=== PATIENT | male | born 1940 | race Caucasian/White ===

== ENCOUNTER 2021-12-30 14:10 | Outpatient (CLI) | payer MEDICARE, SELFPAY ==
--- NOTE | ~2021-12-30 | XR_ITS ---
EXAM: XR ankle RT min 3V, XR foot RT 2V DATE: 12/30/2021 14:36 (accession [id number]), 12/30/2021 14:37 (accession [id number]) HISTORY: M79.671 - SWELLING. NKI . COMPARISON: None available. FINDINGS: Normal mineralization. No fracture or dislocation. No lytic or blastic lesion. Mild tibiot alar osteophytosis. Severe narrowing, sclerosis, and osteophytosis at the first MTP joint. Moderate A chilles and mild plantar enthesopathy. Large os navicularis. No erosion or periosteal change. Soft ti ssue swelling about the ankle and forefoot. IMPRESSION: No acute osseous finding in the right ankle or foot. Degenerative changes, described abov e. Prominent os navicularis which can be a source of chronic medial pain in some patients. Reviewed, dictated and finalized at location K. IMPRESSION: No acute osseous finding in the right ankle or foot. Degenerative c hanges, described above. Prominent os navicularis which can be a source of serologist tod medial pain in some patients.
== END 2021-12-30 14:11 | disposition home or self-care (01) ==
LOC: ANHIMG 14:16
PROVIDERS: PCP Internal Medicine; Visit Provider Internal Medicine
DX: M25.571 Pain in right ankle and joints of right foot (principal); M79.671 Pain in right foot
CPT/HCPCS: 73610; 73620

== ENCOUNTER 2022-03-02 09:12 | Outpatient (CLI) | payer MEDICARE, SELFPAY ==
[2022-03-02 09:30] LABS: Basophils Absolute Auto 0.1 K/mm3 (0.0-0.1); Eosinophils Absolute Auto 0.3 K/mm3 (0-0.3); Eosinophils Percent Auto 3.9 % (0-4.4); Hematocrit 41.8 % (42.0-52.0); Hemoglobin 13.3 g/dL (14.0-18.0); Immature Granulocyte Absolute 0.02 K/mm3 (0.00-0.031); Immature Granulocyte Percent A 0.3 % (0-0.5); Lymphocytes Absolute Auto 2.57 K/mm3 (0.9-3.2); Lymphocytes Percent Auto 32.6 % (18.3-44.2); Mean Corpuscular HGB Conc 31.8 g/dl (32-36); Mean Corpuscular Hemoglobin 30.6 pg (26-34); Mean Corpuscular Volume 96.1 fl (80-100); Mean Platelet Volume 10.1 fl (7.4-10.4); Monocytes Absolute Auto 0.5 K/mm3 (0.1-0.6); Monocytes Percent Auto 6.2 % (2.6-8.5); Neutrophils Absolute Auto 4.4 K/mm3 (1.3-6.7); Platelet Count Result 229 k/mm3 (150-375); Red Blood Count 4.35 M/mm3 (4.6-6.20); Red Cell Distribution Width 13.2 % (11.5-14.5); White Blood Count 7.9 K/mm3 (4.5-10.0)
[2022-03-02 09:48] LABS: Alanine Aminotransferase 18 U/L (6-50); Albumin Level 4.1 g/dL (3.5-5.1); Alkaline Phosphatase 141 U/L (38-126); Anion Gap 8 mmol/L (8-16); Aspartate Amino Transferase 23 U/L (17-59); Bilirubin,Total 0.6 mg/dL (0.2-1.3); Blood Urea Nitrogen 16 mg/dL (9-20); Calcium 8.7 mg/dL (8.4-10.2); Carbon Dioxide 29 mmol/L (22-30); Chloride 102 mmol/L (98-107); Cholesterol 145 mg/dL (0-200); Estimated Glomerular Filt Rate 53; Glucose 101 mg/dL (65-110); HDL Direct 34 mg/dL; Potassium 4.3 mmol/L (3.4-5.0); Sodium 139 mmol/L (137-145); Triglycerides 189 mg/dL (<150)
[2022-03-02 09:59] LABS: LDL Cholesterol Direct 70 mg/dL
[2022-03-02 10:19] LABS: Prostate Specific Antigen 0.4 ng/mL (< OR = 4.0)
[2022-03-02 10:55] LABS: Folic Acid 7.6 ng/mL (2.76->20)
== END 2022-03-02 09:13 | disposition home or self-care (01) ==
PROVIDERS: PCP Internal Medicine; Visit Provider Internal Medicine
DX: R53.83 Other fatigue (principal); I25.10 Atherosclerotic heart disease of native coronary artery without angina pectoris; Z12.5 Encounter for screening for malignant neoplasm of prostate
CPT/HCPCS: 36415; 80053; 80061; 82607; 82746; 84153; 84443; 85025; G0103

== ENCOUNTER 2022-07-14 14:06 | Emergency (ER) | payer MEDICARE, SELFPAY ==
[2022-07-14] VITALS (10 sets, daily range): BP systolic 142–155; BP diastolic 74–84; PULSE 57–65; RESP 14–21; TEMP 36.5–37.1; O2SAT 99–100
--- NOTE | ~2022-07-14 | CT_ITS ---
EXAMINATION: CT brain wo con DATE: 07/14/2022 16:05 INDICATION: seizure . TECHNIQUE: Computed tomography (CT) of the head was performed without intravenous contrast. The mA wa s adjusted according to patient size. Iterative reconstruction technique was employed. The dose-lengt h product was 605.33 mGy-cm. COMPARISON: None. FINDINGS: No acute intracranial hemorrhage or extra-axial fluid collection. No hydrocephalus, mass, or herniation. No acute ischemic infarct. Unremarkable dural venous sinus attenuation. No acute osseous abnormality. The aerated spaces are clear. Moderate atrophy and chronic white matter change. Atherosclerotic intracranial calcification. IMPRESSION: No acute intracranial process. Reviewed, dictated and finalized at location K. PUMPER
--- NOTE | ~2022-07-14 | XR_ITS ---
XR chest 2V 07/14/2022 14:43 Indication: Chest pain. Procedure: 2 view chest Comparison: No prior studies for comparison. Findings: Status post median sternotomy for CABG. There is scalloping of the left diaphragm. No focal air space disease, pulmonary edema, pleural effusion or suspected pneumothorax. 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 Impression: 1: No acute cardiopulmonary disease. Reviewed, dictated and finalized at location B. FORMING SUPERVISOR Impression: 1: No acute cardiopulmonary disease.
--- NOTE | 2022-07-14 14:16 | ECG_ITS ---
Measurements Intervals [place] Rate: 56 P: 26 IL: 196 QRS: -41 QRSD: 126 T: 47 QT: 446 QTc: 431 Interpretive Statements SINUS BRADYCARDIA MARKED LEFT AXIS DEVIATION [QRS AXIS < -30] MODERATE INTRAVENTRICULAR CONDUCTION DELAY [105+ ms QRS DURATION, 80+ ms Q/S IN V1/V2, NO Q AND 60+ ms R IN I/aVL/V5/V6] NO PREVIOUS ECG AVAILABLE FOR COMPARISON Electronically Signed On 07-14-2022 15:07:50 OIL WELL SERVICES SUPERVISOR by Massiel Collazo M.D.
[2022-07-14 14:39] LABS: Basophils Absolute Auto 0.1 K/mm3 (0.0-0.1); Basophils Percent Auto 1.1 % (0.2-1.2); Eosinophils Absolute Auto 0.3 K/mm3 (0-0.3); Eosinophils Percent Auto 3.7 % (0-4.4); Hematocrit 42.3 % (42.0-52.0); Hemoglobin 13.6 g/dL (14.0-18.0); Immature Granulocyte Absolute 0.03 K/mm3 (0.00-0.031); Immature Granulocyte Percent A 0.4 % (0-0.5); Lymphocytes Absolute Auto 2.43 K/mm3 (0.9-3.2); Lymphocytes Percent Auto 29.3 % (18.3-44.2); Mean Corpuscular HGB Conc 32.2 g/dl (32-36); Mean Corpuscular Hemoglobin 30.5 pg (26-34); Mean Corpuscular Volume 94.8 fl (80-100); Mean Platelet Volume 10.2 fl (7.4-10.4); Monocytes Absolute Auto 0.6 K/mm3 (0.1-0.6); Neutrophils Absolute Auto 4.9 K/mm3 (1.3-6.7); Neutrophils Percent Auto 58.5 % (45.5-73.1); Platelet Count Result 248 k/mm3 (150-375); Red Blood Count 4.46 M/mm3 (4.6-6.20); Red Cell Distribution Width 14.2 % (11.5-14.5); White Blood Count 8.3 K/mm3 (4.5-10.0)
[2022-07-14 14:49] LABS: Alanine Aminotransferase 23 U/L (6-50); Albumin Level 4.4 g/dL (3.5-5.1); Alkaline Phosphatase 137 U/L (38-126); Anion Gap 7 mmol/L (8-16); Aspartate Amino Transferase 28 U/L (17-59); Bilirubin,Total 0.6 mg/dL (0.2-1.3); Blood Urea Nitrogen 17 mg/dL (9-20); Calcium 8.5 mg/dL (8.4-10.2); Carbon Dioxide 26 mmol/L (22-30); Chloride 107 mmol/L (98-107); Estimated CRCL calculation 41 ml/min; Estimated Glomerular Filt Rate 58; Glucose 140 mg/dL (65-110); INR 1.1; Lipase 511 U/L (23-300); Potassium 3.9 mmol/L (3.4-5.0); Prothrombin Time 13.7 Seconds (11.1-14.7); Sodium 140 mmol/L (137-145)
[2022-07-14 14:50] LABS: Partial Thromboplastin Time 29.3 SECONDS (22.3-36.8)
[2022-07-14 15:01] LABS: Troponin I < 0.012 ng/mL (0.000-0.034)
--- NOTE | 2022-07-14 16:10 | PC.NURSE ---
Patient off unit to CT.
--- NOTE | 2022-07-14 16:52 | ED.GENADULT ---
HPI - General Adult General Chief complaint: Unspecified Stated complaint: tremors Time Seen by Provider: 07/14/22 15:54 Source: patient and family Mode of arrival: ambulatory Limitations: no limitations History of Present Illness HPI narrative: 81-year-old with a history of CAD s/p CABG, dementia was brought in by his with complaints of right arm pain and shakiness. Patient mentions that they were on their way to from home to their house started to have pain in his right upper extremity and he was violently shaking. He denied any chest pain, shortness of breath. By the time he came to the ER he still has mild pain in his right arm but otherwise no tremor Onset (ago): hour(s) (2) Location: upper extremity (Right upper) Radiation: non-radiation Severity: moderate Quality: aching Pain Consistency: now resolved Relieving factors: none Exacerbating factors: none Associated symptoms: denies other symptoms Related Data Home Medications Medication Instructions Recorded Confirmed atorvastatin 80 mg tablet 80 mg PO DAILY 09/22/21 04/08/22 donepezil 10 mg tablet 10 mg PO QHS 09/22/21 04/08/22 finasteride 5 mg tablet 5 mg PO DAILY 09/22/21 04/08/22 memantine 10 mg tablet 10 mg PO BID 09/22/21 04/08/22 metoprolol tartrate 25 mg tablet 12.5 mg PO BID 09/22/21 04/08/22 mirtazapine 15 mg tablet 15 mg PO DAILY 09/22/21 04/08/22 montelukast 10 mg tablet 10 mg PO DAILY 09/22/21 04/08/22 omeprazole 20 mg tablet,delayed 20 mg PO BID 09/22/21 04/08/22 release Allergies Allergy/AdvReac Type Severity Reaction Status Date / Time codeine Allergy Unknown unkown Verified 07/14/22 15:56 gemfibrozil Allergy Unknown unkown Verified 07/14/22 15:56 niacin Allergy Unknown unkown Verified 07/14/22 15:56 terazosin Allergy Unknown unkown Verified 07/14/22 15:56 Review of Systems Review of Systems: All systems reviewed & are unremarkable except as noted in HPI and below Constitutional: Constitutional: Reports no additional constitutional complaints Eyes: Eyes: Reports no additional eye complaints ENT: Reports system reviewed and no additional complaints, except as documented Cardiovascular: Cardiovascular: Reports no additional cardiovascular complaints Respiratory: Respiratory: Reports no additional respiratory complaints Gastrointestinal: Gastrointestinal: Reports no additional gastrointestinal complaints Musculoskeletal: Musculoskeletal: Reports as per HPI Neurologic: Reports system reviewed and no additional complaints, except as documented PMFSH Past Medical History Medical History Allergies Heart disease Hypertension Family History Family History Father Alzheimer's dementia Mother Asthma Diabetes mellitus Hypertension Heart disease Social History Social History Smoking status: Former smoker Second hand tobacco smoke exposure: No Alcohol intake: never Substance use: unknown Lack of Transportation: No Lack of Food: Never True Current Housing: I Have Housing Concerned About Future Housing: No Difficulty Paying Gas/Electric Bills: No Difficulty Paying for Meds: No Currently Unemployed: No Education: High School Diploma/GED Exam Narrative: GENERAL: Well-appearing, well-nourished, and in no acute distress. HEAD: Normocephalic, atraumatic. EYES: PERRLA and EOMI. NECK: Supple. CHEST: Clear to auscultation. No respiratory distress. HEART: Regular rate and rhythm. No murmur heard. Normal peripheral pulses. ABDOMEN: Soft, nontender, nondistended, normal active bowel sounds. EXTREMITIES: Normal range of motion. No edema. SKIN: Warm, dry, no rash. NEURO: No focal deficits. Alert and oriented x3. No weakness PSYCH: Normal mood and affect. Course Course Emergency Course: Patient remained asymptomatic here in the ER
== END 2022-07-14 17:26 | disposition home or self-care (01) ==
LOC: ANHED 16:55
PROVIDERS: Emergency Medicine; Emergency Provider Family Medicine; PCP Internal Medicine
DX: M79.601 Pain in right arm (principal); R00.1 Bradycardia, unspecified; I10 Essential (primary) hypertension
CPT/HCPCS: 36415; 70450; 71046; 80053; 83690; 84484; 85025; 85610; 85730; 93005; 99284

== ENCOUNTER 2022-07-28 12:01 | Outpatient (CLI) | payer MEDICARE, SELFPAY ==
[2022-07-28 13:12] LABS: Influenza A QL RT-PCR Negative (Negative); Influenza B QL RT-PCR Negative (Negative); RSV RNA, RT-PCR Negative (Negative); SARS-CoV-2 RNA PCR Negative
== END 2022-07-28 12:02 | disposition home or self-care (01) ==
LOC: ANHLAB 12:02
PROVIDERS: PCP Internal Medicine; Visit Provider Internal Medicine
DX: R50.9 Fever, unspecified (principal); Z20.822 Contact with and (suspected) exposure to COVID-19
CPT/HCPCS: 87637

== ENCOUNTER 2022-11-02 10:58 | Outpatient (CLI) | payer MEDICARE, SELFPAY ==
[2022-11-02 12:00] LABS: Basophils Absolute Auto 0.1 K/mm3 (0.0-0.1); Eosinophils Absolute Auto 0.3 K/mm3 (0-0.3); Eosinophils Percent Auto 3.5 % (0-4.4); Hematocrit 43.4 % (42.0-52.0); Hemoglobin 13.7 g/dL (14.0-18.0); Immature Granulocyte Absolute 0.02 K/mm3 (0.00-0.031); Immature Granulocyte Percent A 0.3 % (0-0.5); Lymphocytes Absolute Auto 2.58 K/mm3 (0.9-3.2); Lymphocytes Percent Auto 33.3 % (18.3-44.2); Mean Corpuscular HGB Conc 31.6 g/dl (32-36); Mean Corpuscular Hemoglobin 30.1 pg (26-34); Mean Corpuscular Volume 95.4 fl (80-100); Mean Platelet Volume 10.5 fl (7.4-10.4); Monocytes Absolute Auto 0.5 K/mm3 (0.1-0.6); Monocytes Percent Auto 6.3 % (2.6-8.5); Neutrophils Absolute Auto 4.3 K/mm3 (1.3-6.7); Neutrophils Percent Auto 55.6 % (45.5-73.1); Platelet Count Result 244 k/mm3 (150-375); Red Blood Count 4.55 M/mm3 (4.6-6.20); Red Cell Distribution Width 13.8 % (11.5-14.5); White Blood Count 7.8 K/mm3 (4.5-10.0)
[2022-11-02 12:12] LABS: Alanine Aminotransferase 20 U/L (6-50); Albumin Level 4.3 g/dL (3.5-5.1); Alkaline Phosphatase 138 U/L (38-126); Anion Gap 4 mmol/L (8-16); Aspartate Amino Transferase 26 U/L (17-59); Bilirubin,Total 0.6 mg/dL (0.2-1.3); Blood Urea Nitrogen 19 mg/dL (9-20); Calcium 8.7 mg/dL (8.4-10.2); Carbon Dioxide 30 mmol/L (22-30); Chloride 103 mmol/L (98-107); Cholesterol 136 mg/dL (0-200); Estimated Glomerular Filt Rate 53; Glucose 94 mg/dL (65-110); HDL Direct 35 mg/dL; Magnesium 2.1 mg/dL (1.6-2.3); Potassium 4.6 mmol/L (3.4-5.0); Sodium 137 mmol/L (137-145); Triglycerides 172 mg/dL (<150)
[2022-11-02 12:23] LABS: LDL Cholesterol Direct 71 mg/dL
== END 2022-11-02 10:59 | disposition home or self-care (01) ==
PROVIDERS: PCP Internal Medicine; Visit Provider Internal Medicine
DX: R53.83 Other fatigue (principal); E78.5 Hyperlipidemia, unspecified; I10 Essential (primary) hypertension
CPT/HCPCS: 36415; 80053; 80061; 83735; 84443; 85025

== ENCOUNTER 2023-11-04 13:12 | Emergency (ER) | payer MEDICARE, MEDICAID, SELFPAY ==
[2023-11-04 13:13] VITALS: BP 150/63; PULSE 56; RESP 16; TEMP 36.4; O2SAT 99
[2023-11-04 13:25] LABS: Basophils Absolute Auto 0.1 K/mm3 (0.0-0.1); Basophils Percent Auto 0.8 % (0.2-1.2); Eosinophils Absolute Auto 0.3 K/mm3 (0-0.3); Eosinophils Percent Auto 3.5 % (0-4.4); Hematocrit 39.8 % (42.0-52.0); Hemoglobin 13.2 g/dL (14.0-18.0); Immature Granulocyte Absolute 0.03 K/mm3 (0.00-0.031); Immature Granulocyte Percent A 0.3 % (0-0.5); Lymphocytes Absolute Auto 2.58 K/mm3 (0.9-3.2); Lymphocytes Percent Auto 26.6 % (18.3-44.2); Mean Corpuscular HGB Conc 33.2 g/dl (32-36); Mean Corpuscular Hemoglobin 31.8 pg (26-34); Mean Corpuscular Volume 95.9 fl (80-100); Mean Platelet Volume 9.7 fl (7.4-10.4); Monocytes Absolute Auto 0.7 K/mm3 (0.1-0.6); Monocytes Percent Auto 7.3 % (2.6-8.5); Neutrophils Percent Auto 61.5 % (45.5-73.1); Platelet Count Result 265 k/mm3 (150-375); Red Blood Count 4.15 M/mm3 (4.6-6.20); White Blood Count 9.7 K/mm3 (4.5-10.0)
[2023-11-04 13:36] LABS: Alanine Aminotransferase 29 U/L (6-50); Albumin Level 3.9 g/dL (3.5-5.1); Alkaline Phosphatase 110 U/L (38-126); Anion Gap 5 mmol/L (4-12); Aspartate Amino Transferase 31 U/L (17-59); Bilirubin,Total 0.5 mg/dL (0.2-1.3); Blood Urea Nitrogen 18 mg/dL (9-20); Calcium 8.9 mg/dL (8.4-10.2); Carbon Dioxide 26 mmol/L (22-30); Chloride 100 mmol/L (98-107); Estimated CRCL calculation 46 ml/min; Estimated Glomerular Filt Rate > 60; Glucose 115 mg/dL (65-110); Lipase 182 U/L (23-300); Potassium 4.3 mmol/L (3.4-5.0); Sodium 131 mmol/L (137-145)
[2023-11-04 13:40] LABS: Appearance Urine Clear (Clear); Bacteria Urine None Seen /hpf; Bilirubin Urine Negative (Negative); Blood Urine Negative (Negative); Color Urine Yellow (Yellow); Glucose Urine UA Negative (Negative); Ketones Urine Negative (Negative); Leukocyte Esterase Ur 2+ LEU/UL (Negative); Nitrate Urine Negative (Negative); Non Pathogenic Casts 0-2; Protein Urine Negative (Negative); RBC Urine 0-2 /hpf (0-2); Specific Grav Ur 1.016 (1.001-1.035); Squamous Epithelial Cell Urine None Seen /hpf (Few); Urobilinogen Urine 0.2 mg/dL (<2.0)
[2023-11-04 13:41] LABS: Add Urine Microscopic? YES
[2023-11-04 14:45] VITALS: BP 150/70; PULSE 57; RESP 17; O2SAT 97
--- NOTE | 2023-11-04 16:03 | ED.ABDPAIN ---
HPI - Abdominal Pain General Chief Complaint: Abdominal Pain Stated Complaint: abd pain Time Seen by Provider: 11/04/23 13:30 History of Present Illness HPI narrative: Patient is a 82-year-old male who presents the ER with abdominal pain. Reports he is sitting down and had sudden pain that made him in [place]. He has not had it since then. Unable to tell me where it is located in his abdomen. No nausea or vomiting. No diarrhea. Denies fevers or chills or sweats. No urinary frequency urgency. Patient does have dementia. Related Data Home Medications Medication Instructions Recorded Confirmed donepezil 10 mg tablet 10 mg PO QHS 09/22/21 01/19/23 finasteride 5 mg tablet 5 mg PO DAILY 09/22/21 01/19/23 metoprolol tartrate 25 mg tablet 12.5 mg PO BID 09/22/21 01/19/23 mirtazapine 15 mg tablet 15 mg PO DAILY 09/22/21 01/19/23 montelukast 10 mg tablet 10 mg PO DAILY 09/22/21 01/19/23 omeprazole 20 mg tablet,delayed 20 mg PO BID 09/22/21 01/19/23 release Allergies Allergy/AdvReac Type Severity Reaction Status Date / Time codeine Allergy Unknown unkown Verified 02/04/23 10:28 gemfibrozil Allergy Unknown unkown Verified 02/04/23 10:28 niacin Allergy Unknown unkown Verified 02/04/23 10:28 terazosin Allergy Unknown unkown Verified 02/04/23 10:28 Review of Systems Review of Systems: All systems reviewed & are unremarkable except as noted in HPI and below Constitutional: Constitutional: Reports no additional constitutional complaints Cardiovascular: Cardiovascular: Reports no additional cardiovascular complaints Respiratory: Respiratory: Reports no additional respiratory complaints Gastrointestinal: Gastrointestinal: Reports abdominal pain, Denies diarrhea, Denies nausea and Denies vomiting Genitourinary: Genitourinary: Reports no additional male genitourinary complaints [facility] Past Medical History Medical History Allergies Heart disease Hypertension Family History Family History Father Alzheimer's dementia Mother Asthma Diabetes mellitus Hypertension Heart disease Social History Social History Smoking status: Former smoker Second hand tobacco smoke exposure: No Alcohol intake: never Substance use: unknown Lack of Transportation: No Lack of Food: Never True Current Housing: I Have Housing Concerned About Future Housing: No Difficulty Paying Gas/Electric Bills: No Difficulty Paying for Meds: No Currently Unemployed: No Education: High School Diploma/GED Difficulty w/ Childcare or Family Care: No Living arrangements: with family Occupation/Education: retired Gender identity (if verbalized by the patient): Male Exam Narrative: GENERAL: Well-appearing, well-nourished, and in no acute distress. HEAD: Normocephalic, atraumatic. ENT: Mucous membranes moist. CHEST: Clear to auscultation. No respiratory distress. HEART: Regular rate and rhythm. Normal peripheral pulses. ABDOMEN: Soft, nontender, nondistended. EXTREMITIES: Normal range of motion. No edema. SKIN: Warm, dry, no rash. NEURO: Alert and oriented x2. PSYCH: Normal mood and affect. Course Course Emergency Course: Unremarkable exam here. Labs with 2+ leukocyte esterase and 6-10 white blood cells. No red blood cells. No leukocytosis. Normal renal function and electrolytes with exception of slight hypernatremia. Appropriate for discharge, I do not think this is UTI. JUNIOR SALES REPRESENTATIVE/PA Physician Supervision On room Vital Signs Vital signs: Vital Signs Temperature 97.6 F 11/04/23 13:13 Pulse Rate 56 L 11/04/23 13:13 Respiratory Rate 16 11/04/23 13:13 Blood Pressure 150/63 H 11/04/23 13:13 Pulse Oximetry 99 11/04/23 13:13 Oxygen Delivery Room Air 11/04/23 13:13 Temperature 97.6 F 11/04/23 13:13 Pulse Rate 57 L 11/04/23 14:45
[2023-11-04 16:17] VITALS: BP 155/73; PULSE 59; RESP 16; O2SAT 100
== END 2023-11-04 16:21 | disposition home or self-care (01) ==
PROVIDERS: Emergency Provider Emergency Medicine; PCP Internal Medicine
DX: R10.9 Unspecified abdominal pain (principal); I11.9 Hypertensive heart disease without heart failure; Z87.891 Personal history of nicotine dependence
CPT/HCPCS: 36415; 80053; 81001; 83690; 85025; 87086; 99283

== ENCOUNTER 2024-02-08 07:04 | Emergency (ER) | payer MEDICARE, SELFPAY ==
[2024-02-08] VITALS (22 sets, daily range): BP systolic 146–176; BP diastolic 64–78; PULSE 49–72; RESP 11–21; TEMP 36.3; O2SAT 93–100
--- NOTE | 2024-02-08 07:13 | ECG_ITS ---
Test Date: 2024-02-08 07:18:22 Measurements Intervals [place] Rate: 49 P: 10 NM: 205 QRS: -33 QRSD: 122 T: 10 QT: 442 QTc: 400 Interpretive Statements SINUS BRADYCARDIA LEFT AXIS DEVIATION BORDERLINE AV CONDUCTION DELAY INTRAVENTRICULAR CONDUCTION DELAY BORDERLINE R WAVE PROGRESSION, ANTERIOR LEADS BASELINE ARTIFACT- I, II, AVR, AVL, AVF ABNORMAL ECG No previous ECG available for comparison Electronically Signed On 02-08-2024 08:12:25 CDT by Hay Mar D.O.
[2024-02-08 07:40] LABS: Alanine Aminotransferase 21 U/L (6-50); Albumin Level 3.9 g/dL (3.5-5.1); Alkaline Phosphatase 106 U/L (38-126); Anion Gap 6 mmol/L (4-12); Aspartate Amino Transferase 25 U/L (17-59); Basophils Absolute Auto 0.1 K/mm3 (0.0-0.1); Basophils Percent Auto 0.7 % (0.2-1.2); Bilirubin,Total 0.7 mg/dL (0.2-1.3); Blood Urea Nitrogen 15 mg/dL (9-20); Calcium 8.9 mg/dL (8.4-10.2); Carbon Dioxide 30 mmol/L (22-30); Chloride 97 mmol/L (98-107); Eosinophils Absolute Auto 0.2 K/mm3 (0-0.3); Eosinophils Percent Auto 2.7 % (0-4.4); Estimated CRCL calculation 45 ml/min; Estimated Glomerular Filt Rate > 60; Glucose 108 mg/dL (65-110); Hematocrit 43.4 % (42.0-52.0); Hemoglobin 14.1 g/dL (14.0-18.0); Immature Granulocyte Absolute 0.05 K/mm3 (0.00-0.031); Immature Granulocyte Percent A 0.6 % (0-0.5); Lymphocytes Percent Auto 16.8 % (18.3-44.2); Mean Corpuscular HGB Conc 32.5 g/dl (32-36); Mean Corpuscular Hemoglobin 31.3 pg (26-34); Mean Corpuscular Volume 96.4 fl (80-100); Mean Platelet Volume 9.6 fl (7.4-10.4); Monocytes Absolute Auto 0.6 K/mm3 (0.1-0.6); Monocytes Percent Auto 6.7 % (2.6-8.5); Neutrophils Absolute Auto 6.5 K/mm3 (1.3-6.7); Neutrophils Percent Auto 72.5 % (45.5-73.1); Platelet Count Result 230 k/mm3 (150-375); Potassium 4.7 mmol/L (3.4-5.0); Sodium 133 mmol/L (137-145)
[2024-02-08 07:43] LABS: INR 1.1; Prothrombin Time 14.2 Seconds (11.1-14.7)
[2024-02-08 07:44] LABS: Partial Thromboplastin Time 41.4 Seconds (22.3-36.8)
[2024-02-08] MEDS: SODIUM CHLORIDE 0.9% IV 1,000 ML 999 ML IV CONT (08:35)
[2024-02-08] MEDS: MECLIZINE HCL 25 MG TABLET PO (08:36)
[2024-02-08 08:41] LABS: Add Urine Microscopic? YES; Appearance Urine Clear (Clear); Bacteria Urine None Seen /hpf; Bilirubin Urine Negative (Negative); Blood Urine Negative (Negative); Color Urine Yellow (Yellow); Glucose Urine UA Negative (Negative); Ketones Urine Negative (Negative); Leukocyte Esterase Ur 2+ LEU/UL (Negative); Nitrate Urine Negative (Negative); Non Pathogenic Casts 0-2; Protein Urine Negative (Negative); RBC Urine 0-2 /hpf (0-2); Specific Grav Ur 1.018 (1.001-1.035); Squamous Epithelial Cell Urine None Seen /hpf (Few); Urobilinogen Urine 0.2 mg/dL (<2.0); WBC Urine 21-50 /hpf (0-3)
--- NOTE | 2024-02-08 09:51 | PC.NURSE ---
Spoke with pt's son. Updated him with pt condition and status.
--- NOTE | 2024-02-08 11:06 | PC.NURSE ---
pt ambulated to bathroom with minimal assistance. no c/o of dizziness.
--- NOTE | 2024-02-08 11:54 | ED.GENADULT ---
HPI - General Adult General Chief complaint: Altered Mental Status Stated complaint: Altered mental status Time Seen by Provider: 02/08/24 07:06 History of Present Illness HPI narrative: Patient is an 83-year-old male who presents ER with dizziness. No she was walking to breakfast when he became very lightheaded and thought might pass out. No evidence of head trauma. Staff called for and evaluated for confusion or patient has dementia. Vaginal pain at this time. No headache or change in vision. Reports he goes from lying to sitting he does get dizzy. Related Data Home Medications Medication Instructions Recorded Confirmed donepezil 10 mg tablet 10 mg PO QHS 09/22/21 01/19/23 finasteride 5 mg tablet 5 mg PO DAILY 09/22/21 01/19/23 metoprolol tartrate 25 mg tablet 12.5 mg PO BID 09/22/21 01/19/23 mirtazapine 15 mg tablet 15 mg PO DAILY 09/22/21 01/19/23 montelukast 10 mg tablet 10 mg PO DAILY 09/22/21 01/19/23 omeprazole 20 mg tablet,delayed 20 mg PO BID 09/22/21 01/19/23 release Allergies Allergy/AdvReac Type Severity Reaction Status Date / Time codeine Allergy Unknown unkown Verified 02/08/24 07:24 gemfibrozil Allergy Unknown unkown Verified 02/08/24 07:24 niacin Allergy Unknown unkown Verified 02/08/24 07:24 terazosin Allergy Unknown unkown Verified 02/08/24 07:24 Review of Systems Review of Systems: All systems reviewed & are unremarkable except as noted in HPI and below Constitutional: Constitutional: Reports no additional constitutional complaints ENT: Reports system reviewed and no additional complaints, except as documented Cardiovascular: Cardiovascular: Reports no additional cardiovascular complaints Respiratory: Respiratory: Reports no additional respiratory complaints Musculoskeletal: Musculoskeletal: Reports no additional musculoskeletal complaints [facility] Past Medical History Medical History Allergies Heart disease Hypertension Family History Family History Father Alzheimer's dementia Mother Asthma Diabetes mellitus Hypertension Heart disease Social History Social History Smoking status: Former smoker Second hand tobacco smoke exposure: No Alcohol intake: never Substance use: unknown Lack of Transportation: No Lack of Food: Never True Current Housing: I Have Housing Concerned About Future Housing: No Difficulty Paying Gas/Electric Bills: No Difficulty Paying for Meds: No Currently Unemployed: No Education: High School Diploma/GED Difficulty w/ Childcare or Family Care: No Living arrangements: with family Occupation/Education: retired Gender identity (if verbalized by the patient): Male Exam Narrative: GENERAL: Well-appearing, well-nourished, and in no acute distress. HEAD: Normocephalic, atraumatic. EYES: PERRL and EOMI. ENT: Mucous membranes moist. CHEST: Clear to auscultation. No respiratory distress. HEART: Bradycardic and regular. Normal peripheral pulses. ABDOMEN: Soft, nontender, nondistended. EXTREMITIES: Normal range of motion. No edema. SKIN: Warm, dry, no rash. NEURO: Alert and oriented x3. PSYCH: Normal mood and affect. Course Course Emergency Course: Patient received meclizine and IV fluids. He has no dizziness. He is ambulatory without issue. Urinalysis with mild UTI. Cbc and CMP normal. Vital Signs Vital signs: Vital Signs Temperature 97.4 F L 02/08/24 07:11 Pulse Rate 72 02/08/24 07:11 Respiratory Rate 14 02/08/24 07:11 Blood Pressure 158/67 H 02/08/24 07:11 Pulse Oximetry 100 02/08/24 07:11 Temperature 97.4 F L 02/08/24 07:11 Pulse Rate 59 L 02/08/24 07:38 Respiratory Rate 14 02/08/24 07:35 Blood Pressure 156/76 H 02/08/24 07:38 Pulse Oximetry 100 02/08/24 07:35 Oxygen Delivery Room Air 02/08/24 07:42
--- NOTE | 2024-02-08 13:58 | PC.NURSE ---
Son called with update from this RN. Per son, he will transport pt back to [facility]. ETA 1430.
== END 2024-02-08 14:00 | disposition home or self-care (01) ==
PROVIDERS: Emergency Medicine; Emergency Provider Emergency Medicine; PCP Internal Medicine
DX: R42 Dizziness and giddiness (principal); N39.0 Urinary tract infection, site not specified; I10 Essential (primary) hypertension; Z87.891 Personal history of nicotine dependence
CPT/HCPCS: 36415; 80053; 81001; 85025; 85610; 85730; 87086; 93005; 96360; 96361; 99283; A9270; J7030

== ENCOUNTER 2024-05-20 08:53 | Emergency (ER) | payer MEDICARE, SELFPAY ==
--- NOTE | ~2024-05-20 | XR_ITS ---
EXAMINATION: XR pelvis 1-2V DATE: 05/20/2024 09:55 INDICATION: Unwitnessed chronic medical fall TECHNIQUE: An anteroposterior view of the pelvis was obtained. COMPARISON: None. FINDINGS: Bone alignment is normal. Old healed fracture at the left superior and inferior pubic rami and right inferior pubic ramus. No acute fractures identified. Mild degenerative skeletal changes at the bilate ral hip and sacroiliac joints as well as in the lower lumbar spine. Prominent prostatic calcification s. IMPRESSION: 1. No acute osseous abnormality. Reviewed, dictated and finalized at location A. PING ASSISTANT
--- NOTE | ~2024-05-20 | CT_ITS ---
EXAMINATION: CT brain wo con DATE: 05/20/2024 09:49 INDICATION: Fall. Dementia with confusion. Dizziness. TECHNIQUE: Computed tomography (CT) of the head was performed without intravenous contrast. Sagittal and coronal reconstructions were performed. The mA was adjusted according to patient size. Iterative reconstruction technique was employed. The dose-length product was 605.33 mGy-cm. COMPARISON: head CT dated 07/14/2022 FINDINGS: No fracture. No acute intracranial hemorrhage, acute infarction or abnormal extra axial fluid collect ion. There is moderate scattered white matter hypoattenuation consistent with chronic small vessel is chemic disease. Symmetric prominence of the sulci and ventricles consistent with moderate age-appropr iate diffuse cerebral volume loss. Ventricles are normal and symmetric. No mass/mass effect. The orbi ts, paranasal sinuses and mastoid air cells are normal. IMPRESSION: 1. No fracture or acute intracranial process. 2. Age-related changes including moderate diffuse volume loss and moderate scattered white matter hyp oattenuation consistent with chronic small vessel ischemic disease. Reviewed, dictated and finalized at location A. ITECTURAL PROJECT CAPTAIN IMPRESSION: 1. No fracture or acute intracranial process. 2. Age-related changes including moderate diffuse volume loss and moderate scat tered white matter hypoattenuation consistent with chronic small vessel ischemi c disease.
--- NOTE | ~2024-05-20 | XR_ITS ---
EXAMINATION: XR chest 1V DATE: 05/20/2024 09:55 INDICATION: Fall TECHNIQUE: frontal view of the chest was obtained. COMPARISON: Chest radiograph dated 07/14/2022 FINDINGS: Chronic elevation the left hemidiaphragm. Calcified nodule right upper lung zone and calcified right hilar lymph nodes consistent with old granulomatous disease. No other airspace opacities, pulmonary e shane, pleural effusion or pneumothorax. Heart size is normal. Median sternotomy wires, ostial markers and mediastinal surgical clips consistent with prior coronary artery bypass grafting. IMPRESSION: 1. No acute cardiopulmonary disease. Reviewed, dictated and finalized at location A. ETING ASSISTANT MANAGER
--- NOTE | ~2024-05-20 | CT_ITS ---
EXAMINATION: CT cervical spine wo con DATE: 05/20/2024 09:49 INDICATION: Fall. Dizziness and confusion. TECHNIQUE: Computed tomography (CT) of the cervical spine was performed without intravenous contrast. Automated exposure control and iterative reconstruction technique were employed. The dose-length pro duct was 363.28 mGy-cm. COMPARISON: None FINDINGS: Alignment is normal. Vertebral body heights are normal. No fracture. Severe disc height loss at C5-C6 , moderate disc height loss at C3-C4 and C6-C7 and mild disc height loss at C2-C3 and C4-C5. Multilev el disc bulges and posterior disc osteophyte complexes resulting in mild central canal stenosis at C2 -C3 through C6-C7. Severe uncovertebral osteoarthritis bilaterally at C4-C5 through C6-C7. There is a lso severe facet osteoarthritis on the right at C4-C5 and C7-T1. Additional mild to moderate facet os teoarthritis and remainder of the cervical spine. There is moderate neural foraminal stenosis on the right at C3-C4 and C4-C5 and bilaterally at C5-C6 and C6-C7. Mild neural from stenosis at a few of th e remaining cervical levels. Small calcified right apical nodule consistent with old granulomatous di sease. Cervical soft tissues are unremarkable. IMPRESSION: 1. Moderate to severe cervical spondylosis with no acute osseous abnormality. Reviewed, dictated and finalized at location A. GRATION COORDINATOR
[2024-05-20 08:47] VITALS: BP 134/64; PULSE 92; RESP 18; TEMP 36.8; O2SAT 97
--- NOTE | 2024-05-20 09:15 | ECG_ITS ---
Test Date: 2024-05-20 10:01:16 Measurements Intervals [place] Rate: 84 P: 21 AK: 205 QRS: -42 QRSD: 118 T: 53 QT: 381 QTc: 451 Interpretive Statements SINUS RHYTHM POSSIBLE LEFT ATRIAL ENLARGEMENT [-0.1mV P WAVE IN V1/V2] MARKED LEFT AXIS DEVIATION [QRS AXIS < -30] PATTERN CONSISTENT WITH PULMONARY DISEASE MODERATE INTRAVENTRICULAR CONDUCTION DELAY [110+ ms QRS DURATION] ABNORMAL ECG Electronically Signed On 05-20-2024 13:48:40 SURGICAL COORDINATOR by Brenden Corral M.D.
--- NOTE | 2024-05-20 09:36 | PC.NURSE ---
Patient in cat scan at this time. will obtain EKG when patient returns
[2024-05-20 10:22] LABS: Hematocrit 43.2 % (42.0-52.0); Hemoglobin 14.4 g/dL (14.0-18.0); Mean Corpuscular HGB Conc 33.3 g/dl (32-36); Mean Corpuscular Volume 92.9 fl (80-100); Platelet Count Result 210 k/mm3 (150-375); Red Blood Count 4.65 M/mm3 (4.6-6.20); White Blood Count 11.3 K/mm3 (4.5-10.0)
[2024-05-20 10:35] LABS: Alanine Aminotransferase 29 U/L (6-50); Albumin Level 3.8 g/dL (3.5-5.1); Alkaline Phosphatase 117 U/L (38-126); Anion Gap 2 mmol/L (4-12); Aspartate Amino Transferase 59 U/L (17-59); Blood Urea Nitrogen 19 mg/dL (9-20); Calcium 8.8 mg/dL (8.4-10.2); Carbon Dioxide 29 mmol/L (22-30); Chloride 101 mmol/L (98-107); Estimated CRCL calculation 49 ml/min; Estimated Glomerular Filt Rate > 60; Glucose 109 mg/dL (65-110); Potassium 4.2 mmol/L (3.4-5.0); Sodium 132 mmol/L (137-145)
[2024-05-20 10:47] LABS: Add Urine Microscopic? YES; Appearance Urine Cloudy (Clear); Bacteria Urine None Seen /hpf; Bilirubin Urine Negative (Negative); Blood Urine 3+ (Negative); Color Urine Yellow (Yellow); Glucose Urine UA Negative (Negative); Ketones Urine Negative (Negative); Leukocyte Esterase Ur Negative LEU/UL (Negative); Nitrate Urine Negative (Negative); Non Pathogenic Casts 0-2; Protein Urine 1+ mg/dL (Negative); Specific Grav Ur 1.022 (1.001-1.035); Squamous Epithelial Cell Urine None Seen /hpf (Few); Urobilinogen Urine 0.2 mg/dL (<2.0); WBC Urine 0-5 /hpf (0-3)
--- NOTE | 2024-05-20 10:50 | ED_ITS ---
HPI - General Adult General Chief complaint: Fall Stated complaint: back/neck pain s/p fall Time Seen by Provider: 05/20/24 08:54 History of Present Illness HPI narrative: This is an 83-year-old male presenting after a ground level fall. Patient has dementia is a poor historian. He says that he slipped out of a chair and landed on the ground. Unclear if he struck his head. No loss of consciousness. No use of blood thinners. He is not complaining any pain at this time. Denies fevers chills chest pain difficulty breathing abdominal pain nausea vomiting or diarrhea. Patient smells of foul urine. Related Data Home Medications ?Medication ?Instructions ?Recorded ?Confirmed ?Last Taken ?Type donepezil 10 mg tablet 10 mg PO QHS 09/22/21 01/19/23 Unknown History finasteride 5 mg tablet 5 mg PO DAILY 09/22/21 01/19/23 Unknown History metoprolol tartrate 25 mg tablet 12.5 mg PO BID 09/22/21 01/19/23 Unknown History mirtazapine 15 mg tablet 15 mg PO DAILY 09/22/21 01/19/23 Unknown History montelukast 10 mg tablet 10 mg PO DAILY 09/22/21 01/19/23 Unknown History omeprazole 20 mg tablet,delayed 20 mg PO BID 09/22/21 01/19/23 Unknown History release Allergies Allergy/AdvReac Type Severity Reaction Status Date / Time codeine Allergy Unknown unkown Verified 05/20/24 09:06 gemfibrozil Allergy Unknown unkown Verified 05/20/24 09:06 niacin Allergy Unknown unkown Verified 05/20/24 09:06 terazosin Allergy Unknown unkown Verified 05/20/24 09:06 [facility] Past Medical History Medical History Allergies Hypertension Heart disease Family History Family History Father Alzheimer's dementia Mother Asthma Diabetes mellitus Hypertension Heart disease Social History Social History Smoking status: Former smoker Second hand tobacco smoke exposure: No Alcohol intake: never Substance use: unknown Lack of Transportation: No Lack of Food: Never True Current Housing: I Have Housing Concerned About Future Housing: No Difficulty Paying Gas/Electric Bills: No Difficulty Paying for Meds: No Currently Unemployed: No Education: High School Diploma/GED Difficulty w/ Childcare or Family Care: No Living arrangements: with family Occupation/Education: retired Gender identity (if verbalized by the patient): Male Exam 2 Narrative: APPEARANCE: No apparent distress. strong smell of urine Head: atraumatic. EYES: EOMI, NOSE: Atraumatic NECK: Trachea midline RESPIRATORY: No increased rate of breathing clear to auscultation CARDIOVASCULAR: RRR, ABDOMINAL: Non-distended soft nontender MUSCULOSKELETAl: head to toe trauma assessment performed with no areas of tenderness injury or deformity NEURO: Alert. Moving 4/4 extremities SKIN:: Warm, dry. Normal color PSYCHIATRIC: Normal affect Course Vital Signs Vital signs: Vital Signs Temperature 98.2 F 05/20/24 08:47 Pulse Rate 92 05/20/24 08:47 Respiratory Rate 18 05/20/24 08:47 Blood Pressure 134/64 05/20/24 08:47 Pulse Oximetry 97 05/20/24 08:47 Oxygen Delivery Room Air 05/20/24 08:47 Temperature 98.2 F 05/20/24 08:47 Pulse Rate 92 05/20/24 08:47 Respiratory Rate 18 05/20/24 08:47 Blood Pressure 134/64 05/20/24 08:47 Pulse Oximetry 97 05/20/24 08:47 Oxygen Delivery Room Air 05/20/24 08:47 Medical Decision Making [facility] Narrative Medical decision making narrative: -Course: 83-year-old male presented to ground level fall. Trauma workup negative. urine not indicative infection. Laboratory studies within acceptable limits. Patient be discharged back to senior care with return precautions. -DDX includes but is not limited to: ICH bony injury, soft tissue injury, dehydration, UTI sepsis Vital Signs Vital Signs: Vital Signs Temperature 98.2 F 05/20/24 08:47 Pulse Rate 92 05/20/24 08:47 Respiratory Rate 18 05/20/24 08:47 Blood Pressure 134/64 05/20/24 08:47 Pulse Oximetry 97 05/20/24 08:47 Oxygen Delivery Room Air 05/20/24 08:47 Temperature 98.2 F 05/20/24 08:47 Pulse Rate 92 05/20/24 08:47 Respiratory Rate 18 05/20/24 08:47 Blood Pressure 134/64 05/20/24 08:47 Pulse Oximetry 97 05/20/24 08:47 Oxygen Delivery Room Air 05/20/24 08:47 Lab Data 05/20/24 10:13 05/20/24 10:13 Labs: Lab Results 05/20/24 05/20/24 Range/Units 10:13 10:32 WBC Pending RBC Pending Hgb Pending Hct Pending MCV Pending MCH Pending MCHC Pending RDW Pending Plt Count Pending MPV Pending Immature Gran % (Auto) Pending Neut % (Auto) Pending Lymph % (Auto) Pending [place] % (Auto) Pending Eos % (Auto) Pending Baso % (Auto) Pending Lymph # (Auto) Pending [place] # (Auto) Pending Eos # (Auto) Pending Baso # (Auto) Pending Abs Immat Gran (auto) Pending Absolute Neuts (auto) Pending Absolute Nucleated RBC Pending Nucleated RBC % Pending Sodium 132 L (137-145) mmol/L Potassium 4.2 (3.4-5.0) mmol/L Chloride 101 (98-107) mmol/L Carbon Dioxide 29 (22-30) mmol/L Anion Gap 2 L (4-12) mmol/L BUN 19 (9-20) mg/dL Creatinine 1.00 (0.7-1.3) mg/dL Estim Creat Clear Calc 49 ml/min Estimated GFR > 60 (59 - ) Glucose 109 (65-110) mg/dL Calcium 8.8 (8.4-10.2) mg/dL Total Bilirubin 1.0 (0.2-1.3) mg/dL AST 59 (17-59) U/L ALT 29 (6-50) U/L Alkaline Phosphatase 117 (38-126) U/L Total Protein 6.0 L (6.3-8.2) g/dL Albumin 3.8 (3.5-5.1) g/dL Urine Color Pending Urine Appearance Pending Urine pH Pending Ur Specific [place] Pending Urine Protein Pending Urine Glucose (UA) Pending Urine Ketones Pending Ur Blood (Man) Pending Urine Nitrate Pending Urine Bilirubin Pending Urine Urobilinogen Pending Leukocyte Esterase Rfl Pending Discharge Plan Discharge Clinical Impression: Fall Patient Disposition: Home, Self-Care Condition: Stable Instructions: Antibiotic Form, Fall Prevention for Older Adults (ED) Additional Instructions: Mr. Flores work up in the ED did not find any traumatic injuries or laboratory abnormalities. He can return to the ED if he develops any new symptoms. Patient Language: [place] Prescriptions: No Action donepezil 10 mg tablet 10 mg PO QHS mirtazapine 15 mg tablet 15 mg PO DAILY montelukast 10 mg tablet 10 mg PO DAILY finasteride 5 mg tablet 5 mg PO DAILY metoprolol tartrate 25 mg tablet 12.5 mg PO BID omeprazole 20 mg tablet,delayed release (DR/EC) 20 mg PO BID fluticasone propionate 50 mcg/actuation spray,suspension 2 spray intranasal DAILY PRN (Reason: nasal congestion) Qty: 15.8 5RF Rx Instructions: administer into each nostril cefuroxime axetil 500 mg tablet 500 mg PO BID Qty: 14 0RF memantine 10 mg tablet 10 mg PO BID Qty: 180 1RF atorvastatin 80 mg tablet 80 mg PO DAILY Qty: 90 1RF losartan 50 mg tablet See Rx Instructions .ROUTE .COMPLEX Qty: 90 2RF Dose Instruction: Take 1 tablet by mouth daily. Rx Instructions: Take 1 tablet by mouth daily. aspirin 81 mg tablet,delayed release (DR/EC) See Rx Instructions .ROUTE .COMPLEX Qty: 90 2RF Dose Instruction: Take 1 tablet by mouth daily. Rx Instructions: Take 1 tablet by mouth daily. Follow-up/Referrals: Juany,Cale Galicia DO [Primary Care Provider] -
[2024-05-20 11:00] VITALS: BP 136/68; PULSE 93; RESP 18; O2SAT 98
[2024-05-20 11:00] LABS: Eosinophils Absolute Manual 0.11 K/mm3 (0.02-0.50); Eosinophils Percent Manual 1 % (0-4); Monocytes Absolute Manual 0.79 K/mm3 (0.1-0.90); Monocytes Percent Manual 7 % (3-9); Neutrophils Percent Manual 84 % (46-73); Total Cells Counted 100
[2024-05-20 11:01] LABS: Platelet Estimate Adequate (Adequate); Schistocytes None Seen
[2024-05-20 11:30] VITALS: BP 121/69; PULSE 82; RESP 17; O2SAT 96
[2024-05-20 12:19] VITALS: BP 117/71; PULSE 84; RESP 18; O2SAT 97
--- OUTSIDE RECORDS SUMMARY | 2024-05-27 05:05 | XMS_ITS | CONTINUITY OF CARE DOCUMENT ---
Author Name meagan rhodes Address Unknown Organization [facility] Address [address] [place] [address] Phone [phone] Care Team Providers Care Bilingual Speech Therapist Name Role Phone Victor Hugo Bender MD Unavailable [phone] HUMZA ORTIZ, FAMAGUER Unavailable Unavailable ENDY CHING MD Unavailable Unavailable INSURANCE PROVIDERS Payer name Policy type / Coverage type [place] red green party ID [employer] Medicaid 3 [id number] [facility] [id number]
--- OUTSIDE RECORDS SUMMARY | 2024-05-27 05:05 | XMS_ITS | Continuity of Care Document ---
Author Organization [facility] Address [address] [place] [address] Phone Care Team Providers Care Diamond Sander Name Role Phone Dain Jimenez MD, Gonzalo Kaitlin Unavailabl e Allergies, Adverse Reactions, Alerts Substance Reaction Status Criticality No Known Allergies Active No Inform ation Medications Medication Instructions Dosage Effective Dates (start - stop) Status Comments donepezil 10 mg tablet take 1 tablet by oral route every day in the evening 10 MG - Active memantine 10 mg tablet one BID - Act jason citalopram 20 mg tablet take 1 Tablet by oral route every day 20 MG - Active mirtazapine 15 mg tablet take 1 tablet by oral route every day before bedtime 15 MG - Active metoprolol tartrate 25 mg tablet take 1 by Oral route 2 times every day 1 - Active atorvastatin 80 mg tablet take 1 tablet by oral route every day 80 MG - Active finasteride 5 mg tablet take 1 tablet by oral route every day 5 MG - Active lisinopril 20 mg tablet take 2 tablet by oral route every day 40 MG - Active montelukast 10 mg tablet take 1 tablet by oral route every day in the evening 10 MG - Active omeprazole 20 mg tablet,delayed release - Active clopidogrel 75 mg tablet take 1 tablet by oral route every day 75 MG - Active Advance Directives Directive Yes / No Effective Date File Name No Information Encounters Encounter Description Practice Location Reason(s) For Visit Diagnoses Date Provider [facility], [address], [place], [address], [place] tel:[phone] [facility] No Information Dain Sánchez. [address] [facility], [place], [address], [place]. tel:[phone] [facility], [address], [place], [place], [facility], tel:[phone] [facility] No Information Dain Sánchez. [facility] [facility], [place] [address], [place], [place], [id number], [place]. tel:[phone] [facility], [facility], [place], [place], [facility], [place] tel:[phone] [facility] Body mass index (BMI) 25.0-25.9, adultAlzheimer' s disease with late onset Dain Sánchez. [facility] [facility], [address], [id number], [place]. tel:[phone] [facility], [facility] [place], [place], [facility], [place] tel:[phone] [facility] Body mass index (BMI) 26.0-26.9, adultAlzheimer' s disease with late onsetDementia in ot diseases classd elswhr w/o behavrl disturb Dain Jennings [address], [place] [address], [place], [place], [id number], [place]. tel:[phone] [facility], [facility], [place], [place], [facility], tel:[phone] [facility] Body mass index (BMI) 26.0-26.9, adultAlzheimer' s disease with late onset Dain Sánchez. [facility] [facility], [address] [facility] [address], [place], [place], [id number], [place]. tel:[phone] [facility], [facility] [place], [place], [facility], tel:[phone] [facility] Local-rel symptc epi w cmplx prt seiz,not ntrct,w/o stat epiAlzheimer's disease with late onsetDementia in oth diseases classd elswhr w/o behavrl disturb Dain Sánchez. [address] [place] [address], [address], [id number], . tel:[phone] [facility], [facility] [address] [place], [place], [facility], tel:[phone] [facility] w cmplx prt seiz,not ntrct,w/o stat epiAlzheimer's disease with late onsetDementia in oth diseases classd elswhr w/o behavrl disturb Dain Sánchez. [address] [place] [address], [address], [id number], . tel:[phone] [facility], [facility] [address] [place], [place], [facility], tel:[phone] [facility] Body mass index (BMI) 26.0-26.9, adultAlzheimer' s disease with late onsetWithout behavioral disturbanceLoca lization-relate d (focal) (partial) symptomatic epilepsy and epileptic syndromes with complex partial seizures, not intractable, without status epilepticus Dain Sánchez. [address] [place] [address], [address], [id number], . tel:[phone] Family History Family Member Type Diagnosis Age At Onset Mother Problem (finding) hypertension Mother Problem (finding) Heart disease Mother Problem (finding) asthma Mother Problem (finding) Diabetes mellitus Father Problem (finding) alzheimer's disease Mother Problem (finding) hypercholesterolemia Payers Payer name Insurance type Covered republican ID Aline sol(s) [facility] Medicare (Advantage) 16 [id number] Social History Type Description Quantity Date Captured Comments Alcohol Use Details Unknown Caffeine Use Details Unknown Tobacco Use Status No Information Smoking Status No Information Sex Male Chief Complaint And Reason For Visit No Information Plan Of Treatment Date Type Action Status Goal Tobacco cessation counseling completed Goal Lifestyle education regardin g diet completed Goal Tobacco cessation counseling completed Goal Lifestyle education regardin g diet completed Goal Tobacco cessation counseling completed Goal Lifestyle education regardin g diet completed Goal Lifestyle education regardin g diet completed History Of Present Illness Encounter Date Complaint History Of Prese nt Illness No Information Instructions Date Instruction Additional Infor edmund Lifestyle education regarding di et Related to Body mass index [BMI] 25.0-25.9, adult Giving encouragement to exercise Related to Body mass index [BMI] 26.0-26.9, adult Lifestyle education regarding di et Related to Body mass index [BMI] 26.0-26.9, adult Lifestyle education regarding di et Related to Body mass index (BMI) 26.0-26.9, adult Lifestyle education regarding di et Related to Body mass index (BMI) 26.0-26.9, adult Assessments Type Assessment Date No Information
== END 2024-05-20 12:38 | disposition home or self-care (01) ==
PROVIDERS: Emergency Provider Emergency Medicine; PCP Internal Medicine
DX: T14.90XA Injury, unspecified, initial encounter (principal); W07.XXXA Fall from chair, initial encounter; I10 Essential (primary) hypertension
CPT/HCPCS: 36415; 70450; 71045; 72125; 72170; 80053; 81001; 85025; 93005; 99284

== ENCOUNTER 2024-07-02 15:06 | Emergency (ER) | payer MEDICARE, SELFPAY ==
--- NOTE | ~2024-07-02 | XR_ITS ---
EXAMINATION: XR chest 2V DATE: 07/02/2024 15:35 INDICATION: Chest pain. Near-syncope. TECHNIQUE: Frontal and lateral views of the chest were obtained on 3 radiographs. COMPARISON: Chest single view 05/20/2024 FINDINGS: There is no pneumonia, pleural effusion, or pneumothorax. The heart size is normal. Median sternotomy wires and mediastinal surgical clips are seen, likely from prior coronary artery bypass gr afting. IMPRESSION: 1. No acute cardiopulmonary disease. Reviewed, dictated and finalized at location A. L [facility]
[2024-07-02 15:11] VITALS: BP 108/65; PULSE 60; RESP 18; TEMP 36.2; O2SAT 98
--- NOTE | 2024-07-02 15:12 | ECG_ITS ---
Test Date: 2024-07-02 15:14:07 Measurements Intervals [place] Rate: 63 P: -12 AL: 189 QRS: -43 QRSD: 117 T: 50 QT: 416 QTc: 427 Interpretive Statements SINUS RHYTHM WITH OCCASIONAL SUPRAVENTRICULAR PREMATURE COMPLEXES LEFT AXIS DEVIATION INTRAVENTRICULAR CONDUCTION DELAY PATTERN CONSISTENT WITH PULMONARY DISEASE BORDERLINE ST-T WAVE ABNORMALITY- HIGH LATERAL LEADS BASELINE ARTIFACT- I, III, AVR, AVL BORDERLINE ECG Compared to ECG 05/20/2024 10:01:16 No significant changes Electronically Signed On 07-02-2024 15:17:05 SALES DESIGNER by Hay Mar D.O.
--- OUTSIDE RECORDS SUMMARY | 2024-07-02 15:15 | XMS_ITS | Continuity of Care Document ---
Author Organization [facility] Address [address] [place] [address] Phone Care Team Providers Care Network Analyst Name Role Phone Dain Jimenez MD, Gonzalo Ricci Allergies, Adverse Reactions, Alerts Substance Reaction Status [...] Visit Diagnoses Date Provider [facility] [place], [address] [facility], [place], [address], [place] tel:[phone] [facility] [place] No Information Dain Sánchez. [address] [facility], [place], [address], [place]. tel:[phone] [facility], [address] [facility], [place], [address], [place] tel:[phone] [facility] No Information Dain Sánchez. [address] [facility], [address], [place], [place], [id number], [place]. tel:[phone] [facility], [address] [facility], [place], [address], [place] tel:[phone] [facility] Body mass index (BMI) 25.0-25.9, adultAlzheimer' s disease with late onset Dain Sánchez. [address] [facility], [address], [place], [place], [id number], [place]. tel:[phone] [facility], [address] [facility], [place], [address], [place] tel:[phone] [facility] Body mass index (BMI) 26.0-26.9, adultAlzheimer' s disease with late onsetDementia in ot diseases classd elswhr w/o behavrl disturb Dain Sánchez. [address] [facility], [address], [place], [place], [id number], [place]. tel:[phone] [facility], [address] [facility], [place], [address], [place] tel:[phone] [facility] Body mass index (BMI) 26.0-26.9, adultAlzheimer' s disease with late onset Dain Sánchez. [address] [facility], [address], [place], [place], [id number], [place]. tel:[phone] [facility] [place], [address] [facility], [place], [place], [facility], tel:[phone] [facility] [address]pi w cmplx prt seiz,not ntrct,w/o stat epiAlzheimer's disease with late onsetDementia in oth diseases classd elswhr w/o behavrl disturb Dain Sánchez. [facility], [address], [place], [place], [address] [place] [address], . tel:[phone] [facility] [place], [address] [facility], [place], [place], [facility], tel:[phone] [facility] [address] [facility] epi w cmplx prt seiz,not ntrct,w/o stat epiAlzheimer's disease with late onsetDementia in oth diseases classd elswhr w/o behavrl disturb Dain Sánchez. [facility], [address], [place], [place], [id number], . tel:[phone] [facility] [place], [address] [facility], [place], [place], [facility], tel:[phone] [facility] [place] Body mass index (BMI) 26.0-26.9, adultAlzheimer' s disease with late onsetWithout behavioral disturbanceLoca lization-relate d (focal) (partial) symptomatic epilepsy and epileptic syndromes with complex partial seizures, not intractable, without status epilepticus Dain Sánchez. [facility], [address], [place], [place], [id number], . tel:[phone] Family History Family Member Type Diagnosis Age At Onset Mother Problem (finding) hypertension Mother Problem (finding) Heart disease Mother Problem (finding) asthma Mother Problem (finding) Diabetes mellitus Father Problem (finding) alzheimer's disease Mother Problem (finding) hypercholesterolemia Payers Payer name Insurance type Covered green party ID Authoriza tion(s) [facility] Medicare (Advantage) 16 [id number] Social History Type Description Quantity Date Captured [...]
--- OUTSIDE RECORDS SUMMARY | 2024-07-02 15:15 | XMS_ITS | Continuity of Care Document ---
Author Name [facility] Organization [facility] Care Team Providers Care Temper Mill Roller Name Role Phone [facility] Unavailable Unavailable Problems Combined list of problems from Department of Defense and Veterans Affairs facilities. It does not include entries that were removed or entered in error. Problem Status Onset Date Problem Type Date of Resolution Comments Source Abdominal Pain * (ICD-9-CM 789.00) Active Condition [place] [facility] Acute bronchitis (ICD-9-CM 466.0) Active Condition [place] [facility] Anemia * (ICD-9-CM 285.9) Active Condition [place] [facility] Angina Pectoris * (ICD-9-CM 413.9) Active Condition [place] [facility] Benign paroxysmal positional vertigo (ICD-9-CM 386.11) Active Condition [place] [facility] Bronchitis, Acute Active Condition [place] [facility] Constipation * (ICD-9-CM 564.0) Active Condition [place] [facility] Coronary arteriosclerosis Active Condition [place] [facility] Cough (ICD-9-CM 786.2) Active Condition [place] [facility] Dermatitis * (ICD-9-CM 692.9) Active Condition [place] [facility] Dermatitis due to drugs and medicines taken internally (ICD-9-CM 693.0) Active Condition [place] [facility] Diseases due to Viruses and Chlamydiae, Viral Warts, or unspecified causes (ICD- Active Condition [place] [facility] Disk Disorder,Cervic Active Condition [facility] Dizziness * (ICD-9-CM 780.4) Active Condition [place] [facility] Hematochezia/Melena Active Condition [place] [address] [place] [address] Hypercholesterolemia * (ICD-9-CM 272.0) Active Condition [place] [facility] Hyperlipidemia Active Condition [facility] [place] [facility] Hypertriglyceridemia * (ICD-9-CM 272.1) Active Condition [place] [facility] Insomnia * (ICD-9-CM 780.52) Active Condition [place] [facility] Lower urinary tract symptoms Active Condition [address] Memory loss Active [facility] [place] [facility] [facility] Non-neoplastic nevus Active Condition [address] Nonspecific abnormal results of function study of liver [facility] [address] Osteoarthritis * (ICD-9-CM 715.90) Active Condition [place] [facility] OSTEOARTHROS NOS-SHLDER Active Condition [place] [facility] Other specified gastritis, without mention of hemorrhage (ICD-9-CM 535.40) Active Condition [place] [facility] Pain in joint involving lower leg (ICD-9-CM 719.46) Active Condition [place] [facility] Personal History of other Malignant Neoplasm of Skin (ICD-9-CM V10.83) Active Condition [place] [facility] Postsurgical Aortocoronary Bypass Status Active Condition [address] Postsurgical Aortocoronary Bypass Status (ICD-9-CM V45.81) Active Condition [place] [facility] PUD * (ICD-9-CM 533.90) Active Condition [place] [facility] Pyuria Active Condition [address] Rectal Bleeding (ICD-9-CM 569.3) Active Condition [place] [facility] Seborrheic keratosis Active Condition [address] Subjective tinnitus (ICD-9-CM 388.31) Active Condition [place] [facility] Unspecified gastritis and gastroduodenitis, without mention of hemorrhage (ICD-9 Active Condition [place] [facility] Allergies, Adverse Reactions, Alerts Combined list of allergies from Department of Defense and Veterans Affairs facilities. It does not include entries that were removed or entered in error. Substance Category Reaction Severity Reaction type Status Date Reported Comments Source CODEINE Propensity to adverse reactions to drug (finding) active 3 [facility] [place] GEMFIBROZIL Propensity to adverse reactions to drug (finding) Abdominal pain active 8 [facility] GEMFIBROZIL Propensity to adverse reactions to drug (finding) active 3 [facility] [place] [facility] NIACIN Propensity to adverse reactions to drug (finding) Urticaria active 6 [facility] NIACIN Propensity to adverse reactions to drug (finding) active 3 N. [facility] TERAZOSIN Propensity to adverse reactions to drug (finding) Low blood pressure active 5 [facility] [place] Immunizations Combined list of available immunizations from the Department of Defense and Veterans Affairs facilities. Immunization Series Date Given Administered By Site Reaction Lot Number CVX Code Drug Certified Credit Counselor Status Comments Source PNEUMOCOCCAL, UNSPECIFIED FORMULATION 2008 109 complet ed N. [place] [facility] TD (ADULT), 2 LF TETANUS TOXOID, PRESERVATIVE FREE, ADSORBED 2007 09 complet ed N. [facility] Social History Combined list of available smoking, tobacco, and other social history from Department of Defense and Veterans Affairs facilities. Social History Type Response Date Comment Source Tobacco smoking status NHIS TOBACCO PACK YEARS 04/15/2015 [facility] History of tobacco use TOBACCO PACK YEARS <30 04/15/2015 13 [facility] [facility] History of tobacco use TOBACCO PACK YEARS 07/19/2014 [facility] History of tobacco use LIFETIME NON-TOBACCO USER 09/24/2013 [facility] History of tobacco use TOBACCO NON USE GREATER THAN 12 MONTHS 03/12/2013 [facility] History of tobacco use TOBACCO NON USE GREATER THAN 12 MONTHS 12/06/2012 [facility] History of tobacco use TOBACCO NON USE GREATER THAN 12 MONTHS 03/07/2012 [facility] History of tobacco use QUIT TOBACCO >7 YEARS AGO 02/27/2008 [facility] History of tobacco use QUIT TOBACCO >7 YEARS AGO 09/13/2007 [facility] History of tobacco use QUIT TOBACCO >7 YEARS AGO 09/11/2007 [facility] History of tobacco use QUIT TOBACCO >7 YEARS AGO 07/14/2007 [facility] [facility] [facility] History of tobacco use CURRENT NON-TOBACCO USER-HX OF USE 05/12/2006 [place] [facility] History of tobacco use CURRENT NON-TOBACCO USER-HX OF USE 12/23/2005 QUIT 30 YRS AGO [facility] History of tobacco use CURRENT NON-TOBACCO USER-HX OF USE 09/29/2005 quit 35yrs ago [place] [facility] History of tobacco use CURRENT NON-TOBACCO USER-HX OF USE 04/22/2005 quit 30 years ago [place] [facility] History of tobacco use CURRENT NON-TOBACCO USER-HX OF USE 11/02/2004 QUIT 30 YRS AGO [place] [facility] History of tobacco use CURRENT NON-TOBACCO USER-HX OF USE 08/24/2004 QUIT 30 YRS AGO [place] [facility] History of tobacco use CURRENT NON-TOBACCO USER-HX OF USE 03/23/2004 quit 35 years ago [place] [facility] History of tobacco use CURRENT NON-TOBACCO USER-HX OF USE 11/27/2003 quit 30 years ago [place] [facility] History of tobacco use CURRENT NON-TOBACCO USER-HX OF USE 05/15/2003 quit 30 years ago [place] [facility] History of tobacco use CURRENT NON-TOBACCO USER-HX OF USE 11/21/2002 quit in 1985 [place] [facility] History of tobacco use CURRENT NON-TOBACCO USER-HX OF USE 06/06/2002 1985 quit [place] [facility] History of tobacco use CURRENT NON-TOBACCO USER-HX OF USE 12/19/2001 QUIT 15YRS AGO [place] [facility] History of tobacco use CURRENT NON-TOBACCO USER-HX OF USE 06/21/2001 quit 15 years ago [place] [facility] History of tobacco use CURRENT NON-TOBACCO USER-HX OF USE 12/26/2000 QUIT 15 YEARS AGO [place] [facility] History of tobacco use PRIOR TOBACCO USE CESSATION DATE 09/20/1984 N. [facility]/Bisi Andrade [facility] Advance Directives List of completed, amended, or rescinded Advance Directives on record at Department of Veterans Affairs facilities. An actual copy of the Directive is not included. Date Advance Directive Provider Source 02/01/2013 ADVANCE DIRECTIVE GIOVANNI AL[place]ANTARA [facility]
--- OUTSIDE RECORDS SUMMARY | 2024-07-02 15:15 | XMS_ITS | CONTINUITY OF CARE DOCUMENT ---
Author Name meagan rhodes Address Unknown Organization [facility] Address [address] [place] [address] Phone [phone] Care Team Providers Care Gambling Monitor Name Role Phone Victor Hugo Bender MD Unavailable [phone] HUMZA ORTIZ, FAMAGUER Unavailable Unavailable ENDY CHING MD Unavailable Unavailable INSURANCE PROVIDERS Payer name Policy type / Coverage type [employer] red constitution party ID [facility] Medicaid 3 [id number] [facility] [id number]
--- NOTE | 2024-07-02 16:55 | ED.CHESTPAIN ---
HPI - Chest Pain General Chief Complaint: Chest Pain Stated Complaint: chest pain Time Seen by Provider: 07/02/24 16:55 Focused HPI: This is a 83 year old male that presents to the ER for chest pain. Pain relieved with nitro and aspirin given by EMS. History of CABG. GENERAL: Elderly, well-nourished, and in no acute distress. HEAD: Normocephalic, atraumatic. CHEST: Clear to auscultation. ?No respiratory distress. HEART: Regular rate and rhythm.? NEURO: ?Alert and oriented x3. Patient screened in triage and initial orders placed.? ?Additional care and disposition to be based upon?diagnostic testing and treatment. Related Data Home Medications ?Medication ?Instructions ?Recorded ?Confirmed ?Last Taken ?Type donepezil 10 mg tablet 10 mg PO QHS 09/22/21 01/19/23 Unknown History finasteride 5 mg tablet 5 mg PO DAILY 09/22/21 01/19/23 Unknown History metoprolol tartrate 25 mg tablet 12.5 mg PO BID 09/22/21 01/19/23 Unknown History mirtazapine 15 mg tablet 15 mg PO DAILY 09/22/21 01/19/23 Unknown History montelukast 10 mg tablet 10 mg PO DAILY 09/22/21 01/19/23 Unknown History omeprazole 20 mg tablet,delayed 20 mg PO BID 09/22/21 01/19/23 Unknown History release Allergies Allergy/AdvReac Type Severity Reaction Status Date / Time codeine Allergy Unknown unkown Verified 07/02/24 15:18 gemfibrozil Allergy Unknown unkown Verified 07/02/24 15:18 niacin Allergy Unknown unkown Verified 07/02/24 15:18 terazosin Allergy Unknown unkown Verified 07/02/24 15:18 PMFSH Past Medical History Medical History Allergies Hypertension Heart disease Family History Family History Father Alzheimer's dementia Mother Asthma Diabetes mellitus Hypertension Heart disease Social History Social History Smoking status: Former smoker Second hand tobacco smoke exposure: No Alcohol intake: never Substance use: unknown Lack of Transportation: No Lack of Food: Never True Current Housing: I Have Housing Concerned About Future Housing: No Difficulty Paying Gas/Electric Bills: No Difficulty Paying for Meds: No Currently Unemployed: No Education: High School Diploma/GED Difficulty w/ Childcare or Family Care: No Living arrangements: with family Occupation/Education: retired Gender identity (if verbalized by the patient): Male Course Vital Signs Vital signs: Vital Signs Temperature 97.2 F L 07/02/24 15:11 Pulse Rate 60 07/02/24 15:11 Respiratory Rate 18 07/02/24 15:11 Blood Pressure 108/65 07/02/24 15:11 Pulse Oximetry 98 07/02/24 15:11 Oxygen Delivery Room Air 07/02/24 15:11 Temperature 97.2 F L 07/02/24 15:11 Pulse Rate 60 07/02/24 15:11 Respiratory Rate 18 07/02/24 15:11 Blood Pressure 108/65 07/02/24 15:11 Pulse Oximetry 98 07/02/24 15:11 Oxygen Delivery Room Air 07/02/24 15:11 MDM - Chest Pain MDM Narrative Medical decision making narrative: Patient left after medical screening exam and before any further evaluation or management Discharge Plan Discharge Clinical Impression: Chest pain Qualifiers: Chest pain type: unspecified Qualified Code(s): R07.9 - Chest pain, unspecified Patient Disposition: Elopement After Seen by Prov Condition: Guarded Prognosis Patient Language: Georgian Prescriptions: No Action donepezil 10 mg tablet 10 mg PO QHS mirtazapine 15 mg tablet 15 mg PO DAILY montelukast 10 mg tablet 10 mg PO DAILY finasteride 5 mg tablet 5 mg PO DAILY metoprolol tartrate 25 mg tablet 12.5 mg PO BID omeprazole 20 mg tablet,delayed release (DR/EC) 20 mg PO BID fluticasone propionate 50 mcg/actuation spray,suspension 2 spray intranasal DAILY PRN (Reason: nasal congestion) Qty: 15.8 5RF Rx Instructions: administer into each nostril cefuroxime axetil 500 mg tablet 500 mg PO BID Qty: 14 0RF memantine 10 mg tablet 10 mg PO BID Qty: 180 1RF atorvastatin 80 mg tablet 80 mg PO DAILY Qty: 90 1RF losartan 50 mg tablet See Rx Instructions .ROUTE .COMPLEX Qty: 90 2RF Dose Instruction: Take 1 tablet by mouth daily. Rx Instructions: Take 1 tablet by mouth daily. aspirin 81 mg tablet,delayed release (DR/EC) See Rx Instructions .ROUTE .COMPLEX Qty: 90 2RF Dose Instruction: Take 1 tablet by mouth daily. Rx Instructions: Take 1 tablet by mouth daily. Follow-up/Referrals: Juany,Clae Galicia, [Primary Care Provider] -
--- NOTE | 2024-07-02 21:10 | PC.NURSE ---
no answer X1 at triage
--- OUTSIDE RECORDS SUMMARY | 2024-07-02 22:00 | XMS_ITS | Continuity of Care Document ---
Author Name [facility] Organization [facility] Care Team Providers Care Technology Assistant Name Role Phone [facility] Unavailable Unavailable Problems Combined list of problems from Department of Defense and Veterans Affairs facilities. It does not include entries that were removed or entered in error. Problem Status Onset Date Problem Type Date of Resolution Comments Source Abdominal Pain * (ICD-9-CM 789.00) Active Condition [place] [facility] Acute bronchitis (ICD-9-CM 466.0) Active Condition [place] [facility] Anemia * (ICD-9-CM 285.9) Active Condition [place] [facility] Angina Pectoris * (ICD-9-CM 413.9) Active Condition [place] [facility] Benign paroxysmal positional vertigo (ICD-9-CM 386.11) Active Condition [place] [facility] Bronchitis, Acute Active Condition [place] [facility] Constipation * (ICD-9-CM 564.0) Active Condition [place] [facility] Coronary arteriosclerosis Active Condition [place] [facility] Cough (ICD-9-CM 786.2) Active Condition [place] [facility] Dermatitis * (ICD-9-CM 692.9) Active Condition [place] [facility] Dermatitis due to drugs and medicines taken internally (ICD-9-CM 693.0) Active Condition [place] [facility] Diseases due to Viruses and Chlamydiae, Viral Warts, or unspecified causes (ICD- Active Condition [place] [facility] Disk Disorder,Cervic Active Condition [facility] Dizziness * (ICD-9-CM 780.4) Active Condition [place] [facility] Hematochezia/Melena Active Condition [place] [address] [place] [address] Hypercholesterolemia * (ICD-9-CM 272.0) Active Condition [place] [facility] Hyperlipidemia Active Condition [facility] [facility] Hypertriglyceridemia * (ICD-9-CM 272.1) Active Condition [place] [facility] Insomnia * (ICD-9-CM 780.52) Active Condition [place] [facility] Lower urinary tract symptoms Active Condition [address] Memory loss Active Condition [facility] [place] [facility] [facility] Non-neoplastic nevus Active Condition [address] Nonspecific abnormal results of function study of liver [facility] [address] Osteoarthritis * (ICD-9-CM 715.90) Active Condition [place] [facility] OSTEOARTHROS NOS-SHLDER Active Condition [place] [facility] Other specified gastritis, without mention of hemorrhage (ICD-9-CM 535.40) Active Condition [place] [facility] Pain in joint involving lower leg (ICD-9-CM 719.46) Active Condition [place] [facility] Personal History of other Malignant Neoplasm of Skin (ICD-9-CM V10.83) Active Condition [place] [facility] Postsurgical Aortocoronary Bypass Status Active Condition [address] Postsurgical Aortocoronary Bypass Status (ICD-9-CM V45.81) Active Condition [place] [facility] PUD * (ICD-9-CM 533.90) Active Condition [place] [facility] Pyuria Active Condition [address] Rectal Bleeding (ICD-9-CM 569.3) Active Condition [place] [facility] Seborrheic keratosis Active Condition [address] Subjective tinnitus (ICD-9-CM 388.31) Active Condition [place] [facility] Unspecified gastritis and gastroduodenitis, without mention of hemorrhage (ICD-9 Active Condition [place] [facility] Allergies, Adverse Reactions, Alerts Combined list of allergies from Department of Defense and Veterans Affairs facilities. It does not include entries that were removed or entered in error. Substance Category Reaction Severity Reaction type Status Date Reported Comments Source CODEINE Propensity to adverse reactions to drug (finding) active 3 [facility] [place] GEMFIBROZIL Propensity to adverse reactions to drug (finding) Abdominal pain active 8 [facility] GEMFIBROZIL Propensity to adverse reactions to drug (finding) active 3 [facility] [place] NIACIN Propensity to adverse reactions to drug (finding) Urticaria active 6 [facility] NIACIN Propensity to adverse reactions to drug (finding) active 3 N. [facility] TERAZOSIN Propensity to adverse reactions to drug (finding) Low blood pressure active 5 N. [place] Immunizations Combined list of available immunizations from the Department of Defense and Veterans Affairs facilities. Immunization Series Date Given Administered By Site Reaction Lot Number CVX Code Drug Cheese Cooker Status Comments Source PNEUMOCOCCAL, UNSPECIFIED FORMULATION 2008 109 complet ed N. [place] [facility] TD (ADULT), 2 LF TETANUS TOXOID, PRESERVATIVE FREE, ADSORBED 2007 09 complet ed N. [facility] Social History Combined list of available smoking, tobacco, and other social history from Department of Defense and Veterans Affairs facilities. Social History Type Response Date Comment Source Tobacco smoking status NHIS TOBACCO PACK YEARS 04/15/2015 [place] [facility] History of tobacco use TOBACCO PACK YEARS <30 04/15/2015 13 [place] [facility] History of tobacco use TOBACCO PACK YEARS 07/19/2014 [place] [facility] History of tobacco use LIFETIME NON-TOBACCO USER 09/24/2013 [place] [facility] History of tobacco use TOBACCO NON USE GREATER THAN 12 MONTHS 03/12/2013 [place] [facility] History of tobacco use TOBACCO NON USE GREATER THAN 12 MONTHS 12/06/2012 [place] [facility] History of tobacco use TOBACCO NON USE GREATER THAN 12 MONTHS 03/07/2012 [place] [facility] History of tobacco use QUIT TOBACCO >7 YEARS AGO 02/27/2008 [facility] History of tobacco use QUIT TOBACCO >7 YEARS AGO 09/13/2007 [facility] History of tobacco use QUIT TOBACCO >7 YEARS AGO 09/11/2007 [facility] History of tobacco use QUIT TOBACCO >7 YEARS AGO 07/14/2007 [facility] D[facility] History of tobacco use CURRENT NON-TOBACCO USER-HX OF USE 05/12/2006 [facility] History of tobacco use CURRENT NON-TOBACCO USER-HX OF USE 12/23/2005 QUIT 30 YRS AGO [facility] History of tobacco use CURRENT NON-TOBACCO USER-HX OF USE 09/29/2005 quit 35yrs ago [place] [facility] History of tobacco use CURRENT NON-TOBACCO USER-HX OF USE 04/22/2005 quit 30 years ago [place] [facility] History of tobacco use CURRENT NON-TOBACCO USER-HX OF USE 11/02/2004 QUIT 30 YRS AGO [place] [facility] History of tobacco use CURRENT NON-TOBACCO USER-HX OF USE 08/24/2004 QUIT 30 YRS AGO [place] [facility] History of tobacco use CURRENT NON-TOBACCO USER-HX OF USE 03/23/2004 quit 35 years ago [place] [facility] History of tobacco use CURRENT NON-TOBACCO USER-HX OF USE 11/27/2003 quit 30 years ago [place] [facility] History of tobacco use CURRENT NON-TOBACCO USER-HX OF USE 05/15/2003 quit 30 years ago [place] [facility] History of tobacco use CURRENT NON-TOBACCO USER-HX OF USE 11/21/2002 quit in 1985 [facility] History of tobacco use CURRENT NON-TOBACCO USER-HX OF USE 06/06/2002 1985 quit [facility] History of tobacco use CURRENT NON-TOBACCO USER-HX OF USE 12/19/2001 QUIT 15YRS AGO [facility] History of tobacco use CURRENT NON-TOBACCO USER-HX OF USE 06/21/2001 quit 15 years ago [place] [facility] History of tobacco use CURRENT NON-TOBACCO USER-HX OF USE 12/26/2000 QUIT 15 YEARS AGO [place] [facility] History of tobacco use PRIOR TOBACCO USE CESSATION DATE 09/20/1984 N. CAP[facility]/Bisi Andrade [facility] Advance Directives List of completed, amended, or rescinded Advance Directives on record at Department of Veterans Affairs facilities. An actual copy of the Directive is not included. Date Advance Directive Provider Source 02/01/2013 ADVANCE DIRECTIVE GIVOANNI ALCANTARA 1 [facility]
--- OUTSIDE RECORDS SUMMARY | 2024-07-02 22:00 | XMS_ITS | Continuity of Care Document ---
Author Organization [facility] [place] Address [address] [place] [address] Phone Care Team Providers Care Vp Of Product Name Role Phone Dain Jimenez MD, Gonzalo [...] Visit Diagnoses Date Provider [facility] [place], [address] [facility], [place], [address], [place] tel:[phone] [facility] [place] No Information Dain Sánchez. [address] [facility], [place], [address], [place]. tel:[phone] [facility], [address] [facility], [place], [address], [place] tel:[phone] [facility] No Information Dain Sánchez. [address] [facility], [address] [facility], [place], [place], [address], [place]. tel:[phone] [facility], [address] [facility], [place], [address], [place] tel:[phone] [facility] Body mass index (BMI) 25.0-25.9, adultAlzheimer' s disease with late onset Dain Sánchez. [address] [facility], [address] [facility], [place], [place], [address], [place]. tel:[phone] [facility], [address] [facility], [place], [address], [place] tel:[phone] [facility] Body mass index (BMI) 26.0-26.9, adultAlzheimer' s disease with late onsetDementia in ot diseases classd elswhr w/o behavrl disturb Dain Sánchez. [address] [facility], [address] [facility], [place], [place], [address], [place]. tel:[phone] [facility], [address] [facility], [place], [address], [place] tel:[phone] [facility] Body mass index (BMI) 26.0-26.9, adultAlzheimer' s disease with late onset Dain Sánchez. [address] [facility], [address] [facility], [place], [place], [address], [place]. tel:[phone] [facility] [place], [address] [facility], [place], [place], [facility], tel:[phone] [facility] sympt[facility] epi w cmplx prt seiz,not ntrct,w/o stat epiAlzheimer's disease with late onsetDementia in oth diseases classd elswhr w/o behavrl disturb Dain Sánchez. [facility], [address] [facility], [place], [place], [address] [place] [address], . tel:[phone] [facility] [place], [address] [facility], [place], [place], [facility], tel:[phone] [facility] symptc epi w cmplx prt seiz,not ntrct,w/o stat epiAlzheimer's disease with late onsetDementia in oth diseases classd elswhr w/o behavrl disturb Dain Sánchez. [facility], [address] [facility], [place], [place], [address], . tel:[phone] [facility] [place], [address] [facility], [place], [place], [facility], tel:[phone] [facility] [place] Body mass index (BMI) 26.0-26.9, adultAlzheimer' s disease with late onsetWithout behavioral disturbanceLoca lization-relate d (focal) (partial) symptomatic epilepsy and epileptic syndromes with complex partial seizures, not intractable, without status epilepticus Dain Sánchez. [facility], [address] [facility], [place], [place], [address], . tel:[phone] Family History Family Member Type Diagnosis Age At Onset Mother Problem (finding) hypertension Mother Problem (finding) Heart disease Mother Problem (finding) asthma Mother Problem (finding) Diabetes mellitus Father Problem (finding) alzheimer's disease Mother Problem (finding) hypercholesterolemia Payers Payer name Insurance type Covered constitution party ID Authoriza tion(s) [facility] Medicare (Advantage) 16 [id number] Social History Type Description Quantity Date Captured [...]
--- OUTSIDE RECORDS SUMMARY | 2024-07-02 22:00 | XMS_ITS | CONTINUITY OF CARE DOCUMENT ---
Author Name meagan rhodes Address Unknown Organization [facility] Address [address] [place] [address] Phone [phone] Care Team Providers Care Hogshead Inspector Name Role Phone Victor Hugo Bender MD Unavailable [phone] HUMZA ORTIZ, FAMAGUER Unavailable Unavailable ENDY CHING MD Unavailable Unavailable INSURANCE PROVIDERS Payer name Policy type / Coverage type [place] red green party ID [facility]ILY [employer] Medicaid 3 [id number] [facility] [id number]
== END 2024-07-02 22:04 | disposition left against medical advice (07) ==
LOC: ANHED 21:57
PROVIDERS: Emergency Provider Physician Assistant; PCP Internal Medicine
DX: R07.9 Chest pain, unspecified (principal); I11.9 Hypertensive heart disease without heart failure; Z95.1 Presence of aortocoronary bypass graft; Z87.891 Personal history of nicotine dependence; Z79.82 Long term (current) use of aspirin; Z79.899 Other long term (current) drug therapy
CPT/HCPCS: 71046; 93005; 99284

== ENCOUNTER 2024-10-27 11:59 | Emergency (ER) | payer MEDICARE, SELFPAY ==
[2024-10-27] VITALS (8 sets, daily range): BP systolic 146–170; BP diastolic 63–80; PULSE 52–63; RESP 15–18; TEMP 37.2; O2SAT 99–100
--- NOTE | ~2024-10-27 | XR_ITS ---
EXAMINATION: XR chest 2V DATE: 10/27/2024 12:46 INDICATION: Near syncope TECHNIQUE: frontal and lateral views of the chest were obtained. 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 No new airspace opacities, pulmonary edema, pleural effusion or pneumothorax. The cardiome diastinal silhouette is normal. 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 Moderate thoracic spondylosis dishes bridging osteophy nathalie at multiple levels consistent with diffuse idiopathic skeletal hyperostosis (DISH). IMPRESSION: 1. No acute cardiopulmonary disease. Reviewed, dictated and finalized at location A.
--- NOTE | 2024-10-27 11:59 | ECG_ITS ---
Test Date: 2024-10-27 12:11:20 Measurements Intervals [place] Rate: 53 P: 34 VT: 227 QRS: -35 QRSD: 116 T: 6 QT: 439 QTc: 415 Interpretive Statements SINUS BRADYCARDIA WITH FIRST DEGREE AV BLOCK LEFT AXIS DEVIATION INTRAVENTRICULAR CONDUCTION DELAY PATTERN CONSISTENT WITH PULMONARY DISEASE BORDERLINE ECG Compared to ECG 07/02/2024 15:14:07 HEART RATE HAS DECREASED FIRST DEGREE AV BLOCK NO PRESENT Electronically Signed On 10-27-2024 16:19:40 CDT by Hay Mar D.O.
[2024-10-27 12:26] LABS: Basophils Absolute Auto 0.1 K/mm3 (0.0-0.1); Basophils Percent Auto 0.9 % (0.2-1.2); Eosinophils Absolute Auto 0.3 K/mm3 (0-0.3); Eosinophils Percent Auto 2.9 % (0-4.4); Hematocrit 43.4 % (42.0-52.0); Hemoglobin 13.7 g/dL (14.0-18.0); Immature Granulocyte Absolute 0.04 K/mm3 (0.00-0.031); Immature Granulocyte Percent A 0.4 % (0-0.5); Lymphocytes Absolute Auto 2.42 K/mm3 (0.9-3.2); Mean Corpuscular HGB Conc 31.6 g/dl (32-36); Mean Corpuscular Hemoglobin 29.7 pg (26-34); Mean Corpuscular Volume 94.1 fl (80-100); Mean Platelet Volume 9.8 fl (7.4-10.4); Monocytes Absolute Auto 0.8 K/mm3 (0.1-0.6); Monocytes Percent Auto 7.6 % (2.6-8.5); Neutrophils Absolute Auto 6.5 K/mm3 (1.3-6.7); Neutrophils Percent Auto 64.2 % (45.5-73.1); Platelet Count Result 236 k/mm3 (150-375); Red Blood Count 4.61 M/mm3 (4.6-6.20); Red Cell Distribution Width 14.3 % (11.5-14.5); White Blood Count 10.1 K/mm3 (4.5-10.0)
--- OUTSIDE RECORDS SUMMARY | 2024-10-27 12:29 | XMS_ITS | Continuity of Care Document ---
Author Name [facility] Organization [facility] Care Team Providers Care Credit Reference Clerk Name Role Phone [facility] Unavailable Unavailable Problems Combined list of problems from Department of Defense and Veterans Affairs facilities. It does not include entries that were removed or entered in error. Problem Status Onset Date Problem Type Date of Resolution Comments Source Abdominal Pain * (ICD-9-CM 789.00) Active Condition [place] [facility] Acute bronchitis (ICD-9-CM 466.0) Active Condition [place] [facility] Anemia * (ICD-9-CM 285.9) Active Condition [place] [facility] Angina Pectoris * (ICD-9-CM 413.9) Active Condition [place] [facility] Benign paroxysmal positional vertigo (ICD-9-CM 386.11) Active Condition [place] [facility] Bronchitis, Acute Active Condition [place] [facility] Constipation * (ICD-9-CM 564.0) Active Condition [place] [facility] Coronary arteriosclerosis Active Condition [place] [facility] Cough (ICD-9-CM 786.2) Active Condition [place] [facility] Dermatitis * (ICD-9-CM 692.9) Active Condition [place] [facility] Dermatitis due to drugs and medicines taken internally (ICD-9-CM 693.0) Active Condition [place] [facility] Diseases due to Viruses and Chlamydiae, Viral Warts, or unspecified causes (ICD- Active Condition [place] [facility] Disk Disorder,Cervic Active Condition [facility] Dizziness * (ICD-9-CM 780.4) Active Condition [place] [facility] Hematochezia/Melena Active Condition [facility] [place] [address] [place] [address] Hypercholesterolemia * (ICD-9-CM 272.0) Active Condition [place] [facility] Hyperlipidemia Active Condition [facility] [place] [facility] Hypertriglyceridemia * (ICD-9-CM 272.1) Active Condition [place] [facility] Insomnia * (ICD-9-CM 780.52) Active Condition [place] [facility] Lower urinary tract symptoms Active Condition [address] Memory loss Active Condition [facility] [place] [facility] Non-neoplastic nevus Active Condition [address] [facility] Nonspecific abnormal results of function study of liver [facility] [address] Osteoarthritis * (ICD-9-CM 715.90) Active Condition [place] [facility] OSTEOARTHROS NOS-SHLDER Active Condition [place] [facility] Other specified gastritis, without mention of hemorrhage (ICD-9-CM 535.40) Active Condition [place] [facility] Pain in joint involving lower leg (ICD-9-CM 719.46) Active Condition [place] [facility] Personal History of other Malignant Neoplasm of Skin (ICD-9-CM V10.83) Active Condition [place] [facility] Postsurgical Aortocoronary Bypass Status Active Condition [address] Postsurgical Aortocoronary Bypass Status (ICD-9-CM V45.81) Active Condition [place] [facility] PUD * (ICD-9-CM 533.90) Active Condition [place] [facility] Pyuria Active Condition [address] Rectal Bleeding (ICD-9-CM 569.3) Active Condition [place] [facility] Seborrheic keratosis Active Condition [address] [facility] Subjective tinnitus (ICD-9-CM 388.31) Active Condition [place] [facility] Unspecified gastritis and gastroduodenitis, without mention of hemorrhage (ICD-9 Active Condition [place] [facility] Allergies, Adverse Reactions, Alerts Combined list of allergies from Department of Defense and Veterans Affairs facilities. It does not include entries that were removed or entered in error. Substance Category Reaction Severity Reaction type Status Date Reported Comments Source CODEINE Propensity to adverse reactions to drug (finding) active 3 [facility] [place] GEMFIBROZIL Propensity to adverse reactions to drug (finding) Abdominal pain active 8 [facility] GEMFIBROZIL Propensity to adverse reactions to drug (finding) active 3 [facility] [place] NIACIN Propensity to adverse reactions to drug (finding) Urticaria active 6 [facility] NIACIN Propensity to adverse reactions to drug (finding) active [address] [facility] TERAZOSIN Propensity to adverse reactions to drug (finding) Low blood pressure active 5 [facility] [place] Immunizations Combined list of available immunizations from the Department of Defense and Veterans Affairs facilities. Immunization Series Date Given Administered By Site Reaction Lot Number CVX Code Drug Peoplesoft Hcm Consultant Status Comments Source PNEUMOCOCCAL, UNSPECIFIED FORMULATION 2008 109 complet ed [facility] [place] [facility] TD (ADULT), 2 LF TETANUS TOXOID, PRESERVATIVE FREE, ADSORBED 2007 09 complet ed N. [facility] Social History Combined list of available smoking, tobacco, and other social history from Department of Defense and Veterans Affairs facilities. Social History Type Response Date Comment Source Tobacco smoking status NHIS TOBACCO PACK YEARS 04/15/2015 [facility] History of tobacco use TOBACCO PACK YEARS <30 04/15/2015 13 [facility] History of tobacco use TOBACCO PACK YEARS 07/19/2014 [facility] History of tobacco use LIFETIME NON-TOBACCO USER 09/24/2013 [facility] History of tobacco use TOBACCO NON USE GREATER THAN 12 MONTHS 03/12/2013 [facility] History of tobacco use TOBACCO NON USE GREATER THAN 12 MONTHS 12/06/2012 [facility] History of tobacco use TOBACCO NON USE GREATER THAN 12 MONTHS 03/07/2012 [facility] History of tobacco use QUIT TOBACCO >7 YEARS AGO 02/27/2008 [facility] History of tobacco use QUIT TOBACCO >7 YEARS AGO 09/13/2007 [facility] History of tobacco use QUIT TOBACCO >7 YEARS AGO 09/11/2007 [facility] History of tobacco use QUIT TOBACCO >7 YEARS AGO 07/14/2007 [facility] History of tobacco use CURRENT NON-TOBACCO USER-HX OF USE 05/12/2006 [facility] History of tobacco use CURRENT NON-TOBACCO USER-HX OF USE 12/23/2005 QUIT 30 YRS AGO [facility] History of tobacco use CURRENT NON-TOBACCO USER-HX OF USE 09/29/2005 quit 35yrs ago [place] [facility] History of tobacco use CURRENT NON-TOBACCO USER-HX OF USE 04/22/2005 quit 30 years ago [place] [facility] History of tobacco use CURRENT NON-TOBACCO USER-HX OF USE 11/02/2004 QUIT 30 YRS AGO [place] [facility] History of tobacco use CURRENT NON-TOBACCO USER-HX OF USE 08/24/2004 QUIT 30 YRS AGO [place] [facility] History of tobacco use CURRENT NON-TOBACCO USER-HX OF USE 03/23/2004 quit 35 years ago [place] [facility] History of tobacco use CURRENT NON-TOBACCO USER-HX OF USE 11/27/2003 quit 30 years ago [place] [facility] History of tobacco use CURRENT NON-TOBACCO USER-HX OF USE 05/15/2003 quit 30 years ago [place] [facility] History of tobacco use CURRENT NON-TOBACCO USER-HX OF USE 11/21/2002 quit in 1985 [place] [facility] History of tobacco use CURRENT NON-TOBACCO USER-HX OF USE 06/06/2002 1985 quit [place] [facility] History of tobacco use CURRENT NON-TOBACCO USER-HX OF USE 12/19/2001 QUIT 15YRS AGO [place] [facility] History of tobacco use CURRENT NON-TOBACCO USER-HX OF USE 06/21/2001 quit 15 years ago [place] [facility] History of tobacco use CURRENT NON-TOBACCO USER-HX OF USE 12/26/2000 QUIT 15 YEARS AGO [place] [facility] History of tobacco use PRIOR TOBACCO USE CESSATION DATE 09/20/1984 [facility] Advance Directives List of completed, amended, or rescinded Advance Directives on record at Department of Veterans Affairs facilities. An actual copy of the Directive is not included. Date Advance Directive Provider Source 02/01/2013 ADVANCE DIRECTIVE GIOVANNI ALCANTARA 1 [facility]
--- OUTSIDE RECORDS SUMMARY | 2024-10-27 12:29 | XMS_ITS | Continuity of Care Document ---
Author Organization [facility] [place] Address [address] [place] [address] Phone Care Team Providers Care Car Rider Name Role Phone Dain Jimenez MD, Gonzalo [...] Visit Diagnoses Date Provider [facility] [place], [address] [facility], [place], [address], [place] tel:[phone] [facility] [place] No Information Dain Sánchez. [address] [facility], [place], [address], [place]. tel:[phone] [facility], [address] [facility], [place], [address], [place] tel:[phone] [facility] No Information Dain Sánchez. [address] [facility], [address] [facility], [place], [place], [address], [place]. tel:[phone] [facility], [address] [facility], [place], [address], [place] tel:[phone] [facility] Body mass index (BMI) 25.0-25.9, adultAlzheimer' s disease with late onset Dain Sánchez. [address] [facility], [address] [facility], [place], [place], [address], [place]. tel:[phone] [facility], [address] [facility], [place], [address], [place] tel:[phone] [facility] Body mass index (BMI) 26.0-26.9, adultAlzheimer' s disease with late onsetDementia in ot diseases classd elswhr w/o behavrl disturb Dain Sánchez. [address] [facility], [address] [facility], [place], [place], [address], [place]. tel:[phone] [facility], [address] [facility], [place], [address], [place] tel:[phone] [facility] Body mass index (BMI) 26.0-26.9, adultAlzheimer' s disease with late onset Dain Sánchez. [address] [facility], [address] [facility], [place], [place], [address], [place]. tel:[phone] [facility] [place], [address] [facility], [place], [place], [facility], tel:[phone] [facility]pi w cmplx prt seiz,not ntrct,w/o stat epiAlzheimer's disease with late onsetDementia in oth diseases classd elswhr w/o behavrl disturb Dain Sánchez. [facility], [address] [facility], [place], [place], [address] [place] [address], . tel:[phone] [facility] [place], [address] [facility], [place], [place], [facility], tel:[phone] [facility] epi w cmplx prt seiz,not ntrct,w/o stat epiAlzheimer's disease with late onsetDementia in oth diseases classd elswhr w/o behavrl disturb Dain Sánchez. [facility], [address] [facility], [place], [place], [address], . tel:[phone] [facility] [place], [address] [facility], [place], [place], [facility], tel:[phone] [facility] [place] Body mass index (BMI) 26.0-26.9, adultAlzheimer' s disease with late onsetWithout behavioral disturbanceLoca lization-relate d (focal) (partial) symptomatic epilepsy and epileptic syndromes with complex partial seizures, not intractable, without status epilepticus Dain Sánchez. [facility], [address] [facility], [place], [place], [address], . tel:[phone] Family History Family Member Type Diagnosis Age At Onset Mother Problem (finding) hypertension Mother Problem (finding) Heart disease Mother Problem (finding) asthma Mother Problem (finding) Diabetes mellitus Father Problem (finding) alzheimer's disease Mother Problem (finding) hypercholesterolemia Payers Payer name Insurance type Covered constitution party ID Authoriza tion(s) [facility] Medicare (Advantage) 16 [id number] Social History Type Description Quantity Date Captured [...]
--- OUTSIDE RECORDS SUMMARY | 2024-10-27 12:29 | XMS_ITS | CONTINUITY OF CARE DOCUMENT ---
Author Name meagan rhodes Address Unknown Organization [facility] Address [address] [place] [address] Phone [phone] Care Team Providers Care Supervisor [employer]rain [employer] Name Role Phone Victor Hugo Bender MD Unavailable [phone] HUMZA ORTIZ, FAMAGUER Unavailable Unavailable ENDY CHING MD Unavailable Unavailable INSURANCE PROVIDERS Payer name Policy type / Coverage type [place] red republican ID [facility] Medicaid 3 [id number] [facility] [id number]
[2024-10-27 13:10] LABS: Alanine Aminotransferase 15 U/L (6-50); Albumin Level 3.7 g/dL (3.5-5.1); Alkaline Phosphatase 105 U/L (38-126); Anion Gap 6 mmol/L (4-12); Aspartate Amino Transferase 25 U/L (17-59); Bilirubin,Total 0.6 mg/dL (0.2-1.3); Blood Urea Nitrogen 18 mg/dL (9-20); Calcium 9.1 mg/dL (8.4-10.2); Carbon Dioxide 27 mmol/L (22-30); Chloride 101 mmol/L (98-107); Estimated CRCL calculation 45 ml/min; Estimated Glomerular Filt Rate > 60; Glucose 86 mg/dL (65-110); Sodium 134 mmol/L (137-145); Total Protein 6.4 g/dL (6.3-8.2)
--- NOTE | 2024-10-27 14:09 | ED_ITS ---
HPI - General Adult General Chief complaint: Syncope Stated complaint: Dizzy Time Seen by Provider: 10/27/24 12:24 History of Present Illness HPI narrative: Patient is an 83-year-old male who presents ER after becoming dizzy. He had spilled some popcorn on the floor and was on his hands and knees cleaning it up when he felt sudden spinning dizziness. It lasted for 30 seconds. He did not lose consciousness. He has no numbness or weakness to an arm or leg. No slurred speech. No chest pain. Patient has some history of dementia and was oriented at this time. No additional complaints. Related Data Home Medications ?Medication ?Instructions ?Recorded ?Confirmed ?Last Taken ?Type donepezil 10 mg tablet 10 mg PO QHS 09/22/21 01/19/23 Unknown History finasteride 5 mg tablet 5 mg PO DAILY 09/22/21 01/19/23 Unknown History metoprolol tartrate 25 mg tablet 12.5 mg PO BID 09/22/21 01/19/23 Unknown History mirtazapine 15 mg tablet 15 mg PO DAILY 09/22/21 01/19/23 Unknown History montelukast 10 mg tablet 10 mg PO DAILY 09/22/21 01/19/23 Unknown History omeprazole 20 mg tablet,delayed 20 mg PO BID 09/22/21 01/19/23 Unknown History release Allergies Allergy/AdvReac Type Severity Reaction Status Date / Time codeine Allergy Unknown unkown Verified 10/27/24 13:29 gemfibrozil Allergy Unknown unkown Verified 10/27/24 13:29 niacin Allergy Unknown unkown Verified 10/27/24 13:29 terazosin Allergy Unknown unkown Verified 10/27/24 13:29 Review of Systems 2 Review of Systems: All systems reviewed & are unremarkable except as noted in HPI and below Constitutional: Constitutional: Reports no additional constitutional complaints Cardiovascular: Cardiovascular: Reports no additional cardiovascular complaints Respiratory: Respiratory: Reports no additional respiratory complaints Musculoskeletal: Musculoskeletal: Reports no additional musculoskeletal complaints Neurologic: Reports system reviewed and no additional complaints, except as documented [facility] Past Medical History Medical History Allergies Hypertension Heart disease Family History Family History Father Alzheimer's dementia Mother Asthma Diabetes mellitus Hypertension Heart disease Social History Social History Smoking status: Former smoker Second hand tobacco smoke exposure: No Alcohol intake: never Substance use: unknown Lack of Transportation: No Lack of Food: Never True Current Housing: I Have Housing Concerned About Future Housing: No Difficulty Paying Gas/Electric Bills: No Difficulty Paying for Meds: No Currently Unemployed: No Education: High School Diploma/GED Difficulty w/ Childcare or Family Care: No Living arrangements: with family Occupation/Education: retired Gender identity (if verbalized by the patient): Male Exam 2 Narrative: GENERAL: Well-appearing, well-nourished, and in no acute distress. HEAD: Normocephalic, atraumatic. EYES: PERRL and EOMI. ENT: Mucous membranes moist. Bilateral cerumen impaction. After clearing the impaction patient has normal eardrums. NECK: Supple. CHEST: Clear to auscultation. No respiratory distress. HEART: Regular rate and rhythm. Normal peripheral pulses. ABDOMEN: Soft, nontender, nondistended. EXTREMITIES: Normal range of motion. No edema. SKIN: Warm, dry, no rash. NEURO: Alert and oriented x3. NIH stroke scale 0. PSYCH: Normal mood and affect. Course Vital Signs Vital signs: Vital Signs Temperature 98.9 F 10/27/24 12:00 Pulse Rate 57 L 10/27/24 12:00 Respiratory Rate 18 10/27/24 12:00 Blood Pressure 146/76 H 10/27/24 12:00 Pulse Oximetry 100 10/27/24 12:00 Oxygen Delivery Room Air 10/27/24 12:00 Temperature 98.9 F 10/27/24 12:00 Pulse Rate 52 L 10/27/24 13:46 Respiratory Rate 15 10/27/24 13:46 Blood Pressure 166/75 H 10/27/24 13:46 Pulse Oximetry 99 10/27/24 13:46 Oxygen Delivery Room Air 10/27/24 12:00 Medical Decision Making Vital Signs Vital Signs: Vital Signs Temperature 98.9 F 10/27/24 12:00 Pulse Rate 57 L 10/27/24 12:00 Respiratory Rate 18 10/27/24 12:00 Blood Pressure 146/76 H 10/27/24 12:00 Pulse Oximetry 100 10/27/24 12:00 Oxygen Delivery Room Air 10/27/24 12:00 Temperature 98.9 F 10/27/24 12:00 Pulse Rate 52 L 10/27/24 13:46 Respiratory Rate 15 10/27/24 13:46 Blood Pressure 166/75 H 10/27/24 13:46 Pulse Oximetry 99 10/27/24 13:46 Oxygen Delivery Room Air 10/27/24 12:00 Lab Data 10/27/24 12:12 10/27/24 12:12 Labs: Lab Results 10/27/24 Range/Units 12:12 WBC 10.1 H (4.5-10.0) K/mm3 RBC 4.61 (4.6-6.20) M/mm3 Hgb 13.7 L (14.0-18.0) g/dL Hct 43.4 (42.0-52.0) % MCV 94.1 (80-100) fl MCH 29.7 (26-34) pg MCHC 31.6 L (32-36) g/dl RDW 14.3 (11.5-14.5) % Plt Count 236 (150-375) k/mm3 MPV 9.8 (7.4-10.4) fl Immature Gran % (Auto) 0.4 (0-0.5) % Neut % (Auto) 64.2 (45.5-73.1) % Lymph % (Auto) 24.0 (18.3-44.2) % Ballard % (Auto) 7.6 (2.6-8.5) % Eos % (Auto) 2.9 (0-4.4) % Baso % (Auto) 0.9 (0.2-1.2) % Lymph # (Auto) 2.42 (0.9-3.2) K/mm3 Ballard # (Auto) 0.8 H (0.1-0.6) K/mm3 Eos # (Auto) 0.3 (0-0.3) K/mm3 Baso # (Auto) 0.1 (0.0-0.1) K/mm3 Abs Immat Gran (auto) 0.04 H (0.00-0.031) K/mm3 Absolute Neuts (auto) 6.5 (1.3-6.7) K/mm3 Absolute Nucleated RBC 0.000 (0.0-0.012) K/mm3 Nucleated RBC % 0.0 (0.0-0.2) % Sodium 134 L (137-145) mmol/L Potassium 5.0 (3.4-5.0) mmol/L Chloride 101 (98-107) mmol/L Carbon Dioxide 27 (22-30) mmol/L Anion Gap 6 (4-12) mmol/L BUN 18 (9-20) mg/dL Creatinine 1.00 (0.7-1.3) mg/dL Estim Creat Clear Calc 45 ml/min Estimated GFR > 60 (59 - ) Glucose 86 (65-110) mg/dL Calcium 9.1 (8.4-10.2) mg/dL Total Bilirubin 0.6 (0.2-1.3) mg/dL AST 25 (17-59) U/L ALT 15 (6-50) U/L Alkaline Phosphatase 105 (38-126) U/L Total Protein 6.4 (6.3-8.2) g/dL Albumin 3.7 (3.5-5.1) g/dL Imaging Data Radiologist's impression: ITS Impressions Chest X-Ray 10/27/24 13:06 IMPRESSION: 1. No acute cardiopulmonary disease. ECG Data EKG #1: ECG completion date: 10/27/24 ECG completion time: 12:11 EKG Interpretation: bradycardia (53), sinus rhythm, normal QRS, normal QT and left axis Discharge Plan Discharge Clinical Impression: Bilateral impacted cerumen, Vertigo Patient Disposition: Home Condition: Stable Instructions: Vertigo (ED) Additional Instructions: Is felt you had an episode of vertigo related to ear wax impaction. The erect has been removed. Your evaluation was otherwise unremarkable. Return to the ER if you have additional concerns. Patient Language: Lithuanian Prescriptions: No Action donepezil 10 mg tablet 10 mg PO QHS mirtazapine 15 mg tablet 15 mg PO DAILY montelukast 10 mg tablet 10 mg PO DAILY finasteride 5 mg tablet 5 mg PO DAILY metoprolol tartrate 25 mg tablet 12.5 mg PO BID omeprazole 20 mg tablet,delayed release (DR/EC) 20 mg PO BID fluticasone propionate 50 mcg/actuation spray,suspension 2 spray intranasal DAILY PRN (Reason: nasal congestion) Qty: 15.8 5RF Rx Instructions: administer into each nostril cefuroxime axetil 500 mg tablet 500 mg PO BID Qty: 14 0RF memantine 10 mg tablet 10 mg PO BID Qty: 180 1RF atorvastatin 80 mg tablet 80 mg PO DAILY Qty: 90 1RF losartan 50 mg tablet See Rx Instructions .ROUTE .COMPLEX Qty: 90 2RF Dose Instruction: Take 1 tablet by mouth daily. Rx Instructions: Take 1 tablet by mouth daily. aspirin 81 mg tablet,delayed release (DR/EC) See Rx Instructions .ROUTE .COMPLEX Qty: 90 2RF Dose Instruction: Take 1 tablet by mouth daily. Rx Instructions: Take 1 tablet by mouth daily. Follow-up/Referrals: Juany,Cale Galicia DO [Primary Care Provider] - 1 Week Quality Stroke Scale Stroke Scale 1: Stroke scale date:: 10/27/24 1a Level of consciousness: alert-0 1b Level of consciousness questions: answers both correctly-0 1c Level of consciousness commands: obeys both correctly-0 2 Best gaze: normal-0 3 Visual: no visual loss-0 4 Facial palsy: normal-0 5a Motor: left arm: no drift-0 5b Motor: right arm: no drift-0 6a Motor: left leg: no drift-0 6b Motor: right leg: no drift-0 7 Limb ataxia: absent-0 8 Sensory: normal-0 9 Best language: no aphasia-0 10 Dysarthria: normal-0 11 Extinction and inattention: no abnormality-0 Level:: 0
== END 2024-10-27 15:05 | disposition home or self-care (01) ==
PROVIDERS: Emergency Medicine; Emergency Provider Emergency Medicine; PCP Internal Medicine
DX: R42 Dizziness and giddiness (principal); H61.23 Impacted cerumen, bilateral; I11.9 Hypertensive heart disease without heart failure; Z87.891 Personal history of nicotine dependence; Z79.899 Other long term (current) drug therapy; Z79.82 Long term (current) use of aspirin; R00.1 Bradycardia, unspecified; I44.0 Atrioventricular block, first degree; I45.9 Conduction disorder, unspecified; R94.31 Abnormal electrocardiogram [ECG] [EKG]
CPT/HCPCS: 36415; 69209; 71046; 80053; 85025; 93005; 99284